=== PATIENT | female | born 1950 | race Caucasian/White ===

== ENCOUNTER → 2019-03-29 | Outpatient (CLI) | payer MEDICARE ==
--- NOTE | 2019-03-29 17:11 | RAD ---
Three-view thoracic spine series Clinical indications: Back pain. FINDINGS: No compression fracture or discitis or lytic process is seen. IMPRESSION: No compression fracture is seen. Electronically signed by: Alex Rasmussen MD (03/29/2019 5:07 PM) [id number]
== END | disposition home or self-care (01) ==
LOC: PMG 15:52
PROVIDERS: ATTEND Family Medicine
DX: M54.6 Pain in thoracic spine (principal)
CPT/HCPCS: 72072

== ENCOUNTER 2019-06-26 13:44 | Observation (INO) | payer MEDICARE, MEDICAID ==
[~2019-06-26] VITALS: Ht 165.1 cm; Wt 102.2 kg
[2019-06-26] MEDS ORDERED: IV NORMAL SALINE 1,000ML 1,000 ML IV SCH (14:09)
[2019-06-26 14:35] LABS: BASO % 1 % (0-3); EOS # 0.1 x10^3/uL (0.0-0.7); EOS % 3 % (0-3); HEMATOCRIT 40.9 % (36.0-47.0); HEMOGLOBIN 13.5 g/dL (12.0-15.5); LYMPH # 1.6 x10^3/uL (1.0-4.8); LYMPH % 30 % (24-48); MEAN CORPUSCULAR HEMOGLOBIN 29 pg (25-35); MEAN CORPUSCULAR HGB CONC 33 g/dL (31-37); MEAN CORPUSCULAR VOLUME 88 fL (79-100); MONO # 0.3 x10^3/uL (0.0-1.1); MONO % 5 % (0-9); NEUT # 3.3 x10^3uL (1.8-7.7); NEUT % 61 % (31-73); PLATELET COUNT 215 x10^3/uL (140-400); RED BLOOD COUNT 4.63 x10^6/uL (3.50-5.40); RED CELL DISTRIBUTION WIDTH 13.9 % (11.5-14.5); WHITE BLOOD COUNT 5.4 x10^3/uL (4.0-11.0)
--- NOTE | 2019-06-26 14:43 | PHYS DOC ---
Adult General Chief Complaint Chief Complaint: NEURO SYMPTOMS/DEFICITS HPI HPI Patient is a 68 year old female who presents with complaint of right-sided weakness. The patient states that she awoke yesterday morning with symptoms of right-sided facial droop and right upper extremity weakness. States that the symptoms have been persistent since onset. Noted that she felt weaker today and admits that she had a fall at home. She states that she was able to get herself up after this fall which prompted her to call her neighbor. She states her neighbor then called 911 and patient was thus brought to the emergency department by EMS for further evaluation. Has history of previous CVA in 1995 and factor V Leiden deficiency. Currently takes daily Plavix. Notes that her weakness is primarily in her right upper extremity and along the right side of her face. Does note slowed speech. Denies chest pain, shortness of breath, fever, or abdominal pain. Review of Systems Review of Systems Constitutional: Denies fever or chills [] Eyes: Denies change in visual acuity, redness, or eye pain [] HENT: Denies nasal congestion or sore throat [] Respiratory: Denies cough or shortness of breath [] Cardiovascular: Denies chest pain or edema [] GI: Denies abdominal pain, nausea, vomiting, bloody stools or diarrhea [] : Denies dysuria or hematuria [] Musculoskeletal: Denies back pain or joint pain [] Integument: Denies rash or skin lesions [] Neurologic: Right-sided facial droop, right upper extremity weakness and numbness [] All other systems were reviewed and found to be within normal limits, except as documented in this note. Current Medications Current Medications Current Medications Medications (Trade) Dose Ordered Sig/Valeriano Start Time Stop Time Status Last Admin Dose Admin Iohexol (Omnipaque 350 Mg/ml) 100 ml 1X ONCE 06/26/19 14:45 06/26/19 14:46 UNV Sodium Chloride 1,000 ml @ 1,000 mls/hr Q1H 06/26/19 14:09 06/26/19 15:08 Allergies Allergies Allergies Coded Allergies Type Severity Reaction Last Updated Verified gabapentin Allergy Unknown 06/26/19 Yes magnesium Allergy Unknown 06/26/19 Yes phenobarbital Allergy Unknown 06/26/19 Yes Physical Exam Physical Exam Constitutional: Well developed, well nourished, no acute distress, non-toxic appearance. [] HENT: Normocephalic, atraumatic, bilateral external ears normal, oropharynx moist, no oral exudates, nose normal. [] Eyes: PERRLA, EOMI, conjunctiva normal, no discharge. [] Neck: Normal range of motion, no tenderness, supple, no stridor. [] Cardiovascular:Heart rate regular rhythm, no murmur [] Lungs & Thorax: Bilateral breath sounds clear to auscultation [] Abdomen: Bowel sounds normal, soft, no tenderness, no masses, no pulsatile masses. [] Skin: Warm, dry, no erythema, no rash. [] Back: No tenderness, no CVA tenderness. [] Extremities: No tenderness, no cyanosis, no clubbing, ROM intact, no edema. [] Neurologic: Alert and oriented X 3, right-sided facial droop sparing forehead, right upper extremity motor weakness 4 out of 5, positive drift in right upper extremity, no ataxia. [] Current Patient Data Vital Signs Vital Signs Date Time Temp Pulse Resp B/P (MAP) Pulse Ox O2 Delivery O2 Flow Rate FiO2 06/26/19 14:48 80 13 179/94 (122) 93 Room Air Lab Results Laboratory Tests Test 06/26/19 14:08 Glucose (Fingerstick) 95 mg/dL (70-99) EKG EKG Interpreted by me: Heart rate 72, sinus rhythm, normal intervals, normal axis, no acute ST/T wave abnormalities present [] Radiology/Procedures Radiology/Procedures CT head code stroke read by radiologist: No acute findings [] Course & Med Decision Making Course & Med Decision Making Pertinent Labs and Imaging studies reviewed. (See chart for details) Patient's evaluation shows findings concerning for CVA. Patient's onset of symptoms took place greater than 24 hours prior to presentation in the emergency department. CT imaging of the head was completed which showed no acute findings. I contacted Dr. Dey, stroke neurologist at [facility], and spoke with her regarding the case out 0. She agreed that patient would not be a candidate for IV TPA or endovascular thrombolytics. She did recommend the patient undergo CT angiography of the head and neck to rule out arterial dissection. After results of CT angiography were received, I contacted Dr. Dey and communicated these results. She stated that the patient would not require transfer for MRI imaging as this could be done as an outpatient. She recommended that patient have an echocardiogram and ensure continued treatment with Plavix and aspirin. She stated that the patient could be cared for at [facility] given access to echocardiogram and inpatient neurology consult capabilities. I contacted Dr. Goodman who agreed to accept patient in hospital for further care. [] Dragon Disclaimer Dragon Disclaimer This electronic medical record was generated, in whole or in part, using a voice recognition dictation system. NIH Stroke Scale: NIH Stroke Scale Response (Comments) Value Level of Consciousness: 0 Alert/Responsive 0 LOC Questions: 0 Answers both correctly 0 LOC Commands: 0 Performs both tasks 0 Best Gaze: 0 Normal 0 Visual: 0 No visual loss 0 Facial Palsy: 2 Partial paralysis 2 Motor - Left Arm 0 No drift 0 Motor - Right Arm 1 Drifts but can hold 1 Motor - Left Leg 0 No drift 0 Motor: Right Leg 0 No drift 0 Limb Ataxia: 1 One limb 1 Sensory: 1 Mid to moderate loss 1 Best Language: 1 Mild to mod aphasia 1 Dysathria: 1 Mild to moderate 1 Extinction and Inattention: 0 Normal 0 Total 7 Departure Departure: Impression: Primary Impression: Acute CVA (cerebrovascular accident) Disposition: ADMITTED INPATIENT Admitting Physician: Ramirez Goodman Condition: STABLE Referrals: HUGH OSBORN MD (PCP) WILI LEUNG MD Jun 26, 2019 14:43
[2019-06-26 14:45] LABS: CALCIUM 8.8 mg/dL (8.5-10.1); POTASSIUM 4.2 mmol/L (3.5-5.1)
[2019-06-26] MEDS ORDERED: CONTRAST GIVEN MC PRN (14:45)
[2019-06-26] MEDS ORDERED: IOHEXOL 350 MG/ML 100 ML VIAL. IV ONE (14:45)
[2019-06-26 14:50] LABS: ALBUMIN 3.6 g/dL (3.4-5.0); ALBUMIN/GLOBULIN RATIO 1.2 (1.0-1.7); TOTAL BILIRUBIN 0.4 mg/dL (0.2-1.0); TOTAL PROTEIN 6.6 g/dL (6.4-8.2)
--- NOTE | 2019-06-26 15:10 | RAD ---
CT CODE STROKE HEAD WO History: Right-sided weakness. Right eye drooping Comparison: None. Technique: Noncontrast CT imaging was performed of the head. Exposure: One or more of the following individualized dose reduction techniques were utilized for this examination: 1. Automated exposure control 2. Adjustment of the mA and/or kV according to patient size 3. Use of iterative reconstruction technique. Findings: No intracranial hemorrhage. No mass effect. No hydrocephalus. Extra-axial spaces are unremarkable. Imaged orbits are unremarkable. Imaged paranasal sinuses and mastoid air cells are clear. No acute calvarial fracture. Impression: 1. No acute intracranial abnormality. FOR INTERNAL CODING PURPOSES Critical result: Findings discussed with WILI LEUNG at 06/26/2019 2:10 PM. RESULT CODE: (C) Electronically signed by: Murray Ortega DO (06/26/2019 2:12 PM) [id number]
--- NOTE | 2019-06-26 15:27 | RAD ---
EXAM: Chest, single view. HISTORY: Right-sided weakness. COMPARISON: None. FINDINGS: A frontal view of the chest is obtained. There is focal left suprahilar opacity. There is no consolidation, pleural effusion or pneumothorax. The heart is normal in size. IMPRESSION: Possible left suprahilar infiltrate or focal opacity due to overlying osseous and pulmonary vascular shadows. Follow-up can be performed to exclude infiltrate or a persistent lesion in this location. Electronically signed by: Bertha Bernal MD (06/26/2019 3:24 PM) [facility]
--- NOTE | 2019-06-26 15:54 | RAD ---
CTA of the head and neck with contrast 06/26/2019 Clinical history: Right-sided weakness since yesterday. Technique: After the intravenous administration of 75 cc of Omnipaque 300, contiguous, 0.625 mm axial sections were obtained through the upper chest, neck and head. Multiplanar 3-D MIP and volume rendered 3-D reconstructed images were obtained. One or more of the following individualized dose reduction techniques were utilized for this study: 1. Automated exposure control. 2. Adjustment of the mA and/or kV according to patient size. 3. Use of iterative reconstruction technique. Findings: Comparison is made to patient's CT scan of the head performed earlier today. Scattered atherosclerotic plaque formation is seen involving the thoracic aortic arch and its branches. The origin of the brachiocephalic and left common carotid and left subclavian arteries from the thoracic aortic arch are patent. The origin of the right common carotid artery and right vertebral artery are patent. The left vertebral artery appears to arise from the proximal left common carotid artery. This is normal variation. This origin is patent. The common carotid arteries are mildly tortuous bilaterally but patent. Mild atheromatous/atherosclerotic plaque formation seen involving both carotid bifurcations, right greater than left. No hemodynamically significant stenosis is seen. The internal carotid arteries within the neck are tortuous but patent. The left vertebral artery is slightly dominant Both vertebral arteries demonstrate normal antegrade flow. No area stenosis or occlusion is seen. Intracranially, scattered atherosclerotic plaque formation is seen involving the cavernous portions of both internal carotid arteries. No hemodynamically significant stenosis or area of occlusion is seen. The basilar artery is patent. The anterior, middle and posterior cerebral arteries and their branches are within normal limits. No area of stenosis or occlusion is seen. No intracranial aneurysm is noted. The major dural venous sinuses are patent. No area of abnormal contrast enhancement is seen. No acute soft tissue abnormality is seen involving the neck. Degenerative changes are seen involving the uncovertebral and facet joints throughout the cervical disc spaces. The patient is post anterior discectomy and fusion using an anterior plate, bone screws and bone graft material extending from C4 to C7. Impression: 1. Mild atheromatous/atherosclerotic plaque formation is seen involving both carotid bifurcations, right greater than left. No hemodynamically significant stenosis is seen. 2. No intracranial stenosis or area of occlusion is seen. Stenosis calculation for CTA are based on measurement of the distal internal carotid artery diameter in accordance with the NASCET methodology. Electronically signed by: Finesse Berger MD (06/26/2019 3:51 PM) [id number]
[2019-06-26] MEDS ORDERED: ACETAMINOPHEN 325 MG TABLET PO ONE ×2 (18:04→18:15)
--- NOTE | 2019-06-26 18:18 | EKG ---
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
[2019-06-26 20:37] VITALS: BP 158/87
[2019-06-26] MEDS ORDERED: CLOP75TA57 PO (21:06)
[2019-06-26] MEDS ORDERED: SERT100T PO (21:06)
[2019-06-26] MEDS ORDERED: ALBU2.5V8 IH (21:06)
[2019-06-26] MEDS ORDERED: PANT40TA3 PO (21:06)
[2019-06-26] MEDS ORDERED: LEVO25TA4 PO (21:06)
[2019-06-26] MEDS ORDERED: TRAM50TA PO (21:06)
[2019-06-26] MEDS ORDERED: QUET50TA5 PO (21:06)
[2019-06-26] MEDS ORDERED: LAMO150T3 PO (21:06)
[2019-06-26] MEDS ORDERED: ROPI0.25 PO (21:06)
[2019-06-26] MEDS ORDERED: traMADol 50 MG TABLET PO PRN ×2 (21:30→21:45)
[2019-06-26] MEDS ORDERED: ALBUTEROL SULFATE 2.5 MG/3 ML NEBU. IH PRN (21:30)
[2019-06-26] MEDS ORDERED: ASPI-630 PO (21:33)
[2019-06-26] MEDS ORDERED: rOPINIRole 0.5 MG TABLET. PO SCH (22:00)
[2019-06-26] MEDS ORDERED: lamoTRIgine 100 MG TABLET. PO SCH (22:00)
[2019-06-26] MEDS ORDERED: QUEtiapine 50 MG TABLET. PO SCH (22:00)
[2019-06-26] MEDS: ACETAMINOPHEN 325 MG TABLET PO PRN (22:48)
--- NOTE | 2019-06-26 23:48 | NUR ---
The patient, FROYLAN QUINTANA, 68 y/o, F admitted by MARIA FERNANDA LUBIN MD, was given written information regarding hospital policies, unit procedures and contact persons. Valuables were checked and noted. PT presented with increased weakness, falls x2 at home with no injury, and RT-sided facial droopiness. At time of assessment, PT with no noted asymmetry to mouth, asymmetrical eye droopiness. Speech was clear and coherent. PT with a headache at 5/10. PT voided on arrival to unit. PT able to walk unassisted to restroom. Gait steady. No assistive devices at home or now. PT belongings left in room. PT's son notified of admission. Orders received at start of admission from MD. 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 PT had a CVA at age 44. PT with factor V Leiden. PT states that when she is extremely tired, she will have RT-sided weakness that quickly resolved. PT lives alone.
[2019-06-27] MEDS: ACETAMINOPHEN 325 MG TABLET PO PRN ×2 (04:28→15:52)
[2019-06-27 05:16] VITALS: BP 169/91
[2019-06-27] MEDS ORDERED: LEVOTHYROXINE 25 MCG TABLET. PO SCH (06:00)
[2019-06-27 06:10] LABS: BASO # 0.1 x10^3/uL (0.0-0.2); BASO % 1 % (0-3); EOS # 0.2 x10^3/uL (0.0-0.7); EOS % 4 % (0-3); HEMATOCRIT 37.8 % (36.0-47.0); HEMOGLOBIN 12.4 g/dL (12.0-15.5); LYMPH # 1.7 x10^3/uL (1.0-4.8); LYMPH % 38 % (24-48); MEAN CORPUSCULAR HEMOGLOBIN 29 pg (25-35); MEAN CORPUSCULAR HGB CONC 33 g/dL (31-37); MEAN CORPUSCULAR VOLUME 87 fL (79-100); MONO # 0.3 x10^3/uL (0.0-1.1); MONO % 6 % (0-9); NEUT # 2.3 x10^3uL (1.8-7.7); NEUT % 52 % (31-73); PLATELET COUNT 188 x10^3/uL (140-400); RED BLOOD COUNT 4.34 x10^6/uL (3.50-5.40); RED CELL DISTRIBUTION WIDTH 13.2 % (11.5-14.5); WHITE BLOOD COUNT 4.5 x10^3/uL (4.0-11.0)
[2019-06-27 06:18] LABS: CALCIUM 8.3 mg/dL (8.5-10.1); CREATININE 0.9 mg/dL (0.6-1.0); GFR 62.1; POTASSIUM 3.6 mmol/L (3.5-5.1)
[2019-06-27] MEDS ORDERED: PANTOPRAZOLE 40 MG TABLET. PO SCH (07:30)
--- NOTE | 2019-06-27 07:45 | NUR ---
NURSING NOTE CONSULT CONSULT HABIB PAGED OUT, RETURN PHONE CALL, HE WILL BE HERE TO SEE PT. ARIA RN.
[2019-06-27] MEDS: ONDANSETRON PF 4 MG/2 ML VIAL. IVP PRN ×2 (08:33→12:17)
[2019-06-27] MEDS ORDERED: SERTRALINE 100 MG TABLET. PO SCH (09:00)
[2019-06-27] MEDS ORDERED: CLOPIDOGREL BISULFATE 75 MG TABLET PO SCH (09:00)
--- NOTE | 2019-06-27 10:19 | RAD ---
DOPPLER CAROTID BILAT History: CVA COMPARISON: CT June 26, 2019 Technique: Duplex sonography of the cervical portion of both carotid arteries was performed. Real-time grayscale, color flow Doppler, and Doppler spectral waveform analysis is performed. PQRS Compliance Statement - Stenosis calculations for CT, MR and conventional angiography are based upon measurement of the distal ICA diameter in accordance with the NASCET methodology. Stenosis calculations for carotid ultrasound studies are derived from validated velocity criteria which are known to correlate with the NASCET methodology. Findings: Right side: Peak systolic flow velocity of the CCA is 68 cm/sec. Peak systolic flow velocity of the ICA is 57 cm/sec. The ICA/CCA ratio is 0.8. Peak end diastolic flow velocity of the ICA is 21 cm/sec. The peak systolic velocity of the ECA is 119 cm/sec. Mild focal calcified plaque within the right carotid bifurcation. Left side: Peak systolic flow velocity of the CCA is 52 cm/sec. Peak systolic flow velocity of the ICA is 73 cm/sec. The ICA/CCA ratio is 1.4. Peak end diastolic flow velocity of the ICA is 29 cm/sec. Peak systolic flow velocity of the ECA is 88 cm/sec. Mild soft plaque within the left carotid bifurcation. Vertebral arteries: Bilateral vertebral arteries demonstrate antegrade flow. IMPRESSION: 1. No hemodynamically significant internal carotid artery stenosis. 2. Mild bilateral carotid bifurcation atheromatous plaque. Electronically signed by: Murray Ortega DO (06/27/2019 10:16 AM) [id number]
--- NOTE | 2019-06-27 10:20 | NUR ---
NURSING NOTE PT C/O NAUSEA THIS AM AFTER BREAKFAST. PRN ZOFRAN GIVEN. PT STATES SHE IS FEELING BETTER. DR NAJERA HERE TO JOSE MANUEL PT. JOSE KNAPP.
[2019-06-27 11:21] VITALS: BP 153/90
--- NOTE | 2019-06-27 11:30 | CONS ---
DATE OF CONSULTATION: REFERRING PHYSICIAN: Dr. Goodman. REASON FOR CONSULTATION: Rule out stroke versus TIA. HISTORY OF PRESENT ILLNESS: This is a 68-year-old right-handed female who was admitted through Emergency Room on 06/26/2019. The patient presented with chief complaints of right facial drooping and right upper extremity weakness, began one day prior to this admission. She woke up that morning with right facial drooping and weakness of the right upper extremity. Currently, she complains of intermittent global headaches. She denies nausea, vomiting, chest pain, shortness of breath or palpitation. The patient stated her speech has been slow. She did have a mild weakness of the lower extremity, but that resolved. EMS was activated and transferred the patient to Emergency Room for further evaluation. According to the patient, she had previous stroke in 1995, presented with right-sided weakness and facial droop. She did describe intermittent symptoms of right-sided weakness when she gets tired, mainly affecting the left face and upper extremity. Initial nonenhanced head CT scan revealed no evidence of acute intracranial process and CT angio of the neck and the brain revealed no significant carotid artery stenosis or cerebral artery stenosis. The patient has been on Plavix for a while because she had factor V Leiden deficiency. PAST MEDICAL HISTORY: Significant for stroke in 1995, presented with right-sided weakness, TIA, hypertension, hypothyroidism, deep venous thrombosis, GERD, uterine and cervical cancer, kidney stone, urinary tract infection, osteoarthritis, degenerative disk disease, depressions, skin cancer. PAST SURGICAL HISTORY: Positive for cholecystectomy, cervical spine fusion, posterior aspect and lumbosacral spine surgery as well. FAMILY HISTORY: Brother had myocardial infarction as well as her father and diabetes mellitus. SOCIAL HISTORY: The patient denies smoking, alcohol drinking or illicit drug use. CURRENT HOME MEDICATIONS: Sertraline 150 mg daily, Plavix 75 mg daily, pantoprazole 40 mg daily, lamotrigine 150 mg at bedtime, levothyroxine 25 mcg daily, ropinirole 0.5 mg at bedtime, Seroquel 50 mg at bedtime, tramadol 100 mg every 6 hours p.r.n. for pain, albuterol inhaler, Tylenol. ALLERGIES: GABAPENTIN, MAGNESIUM and PHENOBARBITAL. REVIEW OF SYSTEMS: A 10-point review of system was performed as mentioned above in the history of present illness. The patient also complains of intermittent neck pain radiating to the shoulder plate and lower back pain radiating into the lower extremities. She denies bowel or bladder dysfunction. PHYSICAL EXAMINATION: GENERAL: Obese female, not in acute distress. She weighs 102 kilos. VITAL SIGNS: Blood pressure 169/91, respiratory rate 18, pulse is 75 and regular, temperature 98.1, oxygen saturation 94% on room air. HEENT: Normocephalic, atraumatic, otherwise unremarkable. NECK: Supple. Negative for carotid bruit, lymphadenopathy or thyromegaly. LUNGS: Clear to A and P. CARDIOVASCULAR: Regular rate and rhythm, normal S1, S2. There is no S3, S4 or murmur. ABDOMEN: Soft. Bowel sounds positive. EXTREMITIES: Negative for cyanosis, clubbing or edema. NEUROLOGICAL EXAMINATION: MENTAL STATUS: The patient is alert and oriented x 3. Speech is fluent. There is no language dysfunction. Memory, judgment and abstracting thinking are normal. The patient denies hallucination or delusion. CRANIAL NERVES: Visual rodrigues are full. The pupils are reactive to light and accommodation. The extraocular movements are intact. There is no nystagmus. There is mild right facial asymmetry on the right side. Hearing is intact bilaterally. The palate is elevated symmetrically. Sternocleidomastoid muscles are powerful bilaterally. The patient shrugs her shoulders symmetrically, protrudes her tongue in the midline without fasciculation or atrophy. MOTOR EXAMINATION: No focal muscle bulk was seen. The tone is normal. The strength is 4/5 in the right upper extremity and right shape carver compared to the left one. The strength elsewhere was 5/5 throughout. SENSORY EXAMINATION: Revealed normal pinprick, light touch, vibratory and position senses. Deep tendon reflexes were symmetric and hypoactive with absent Achilles responses. GAIT: The stance is steady. The patient walks without assistance. DIAGNOSTIC DATA: Initial nonenhanced head CT scan revealed no evidence of acute intracranial process. CT angio of the neck revealed mild atherosclerotic plaque formation without significant carotid stenosis. No intracranial stenosis or occlusion. Chest x-ray revealed questionable suprahilar infiltrate or focal opacity. LABORATORY DATA: CBC revealed white blood cells of 4.5 thousand, hemoglobin 12.4, hematocrit 37.8, platelet count 188,000. Chemistry revealed sodium of 142, potassium 3.6, chloride 108, CO2 of 27, BUN 12, creatinine 0.9, glucose 87, calcium 8.3. PT is 9.6 and INR 0.9. IMPRESSION: Possible acute stroke, presented with persistent right facial weakness and right upper extremity paresis, sparing the lower extremities. The patient has multiple risk factors for stroke including factor V Leiden deficiency, age, hypertension, previous stroke or transient ischemic attacks. RECOMMENDATIONS: 1. Continue with current medications including Plavix. 2. We will add aspirin 81 mg p.o. daily. 3. Physical therapy evaluation. 4. Correct slowly the underlying hypertension and keep systolic blood pressure around 135-140m weight loss. M Isi NAJERA MD DR: IAN/sylvester JOB#: [id number] / [id number]
--- NOTE | 2019-06-27 12:54 | HP ---
ADMIT DATE: HISTORY OF PRESENT ILLNESS: The patient is a 68-year-old female patient who presented with a complaint of right sided weakness. She stated she woke up on Monday morning with symptoms of right sided facial droop and right upper extremity weakness. She stated that her symptoms have been persistent since onset, noted that she felt weaker on the day of admission and admits that she had a fall at home. She states that she was able to get herself up after this fall, which prompted her to call her neighbor. She states her neighbor had then called 911. The patient was brought to the Emergency Department by EMS for further evaluation. She has had a previous history of CVA in 1995 and she has factor V Leiden deficiency, currently takes daily Plavix, notes that her weakness is primarily in her right upper extremity along the right side of her face. She does note slow with speech, but denied any chest pain, shortness of breath, fever, or abdominal pain. She was extensively evaluated in the Emergency Room. She has had a CT scan of the head and CT angio of the head and neck. CT scan of the head was unremarkable and showed no acute intracranial abnormality. CT angio showed also mild atheromatous/atherosclerotic plaque formation is seen involving both carotid bifurcation, right greater than left. No hemodynamically significant stenosis seen. No intracranial stenosis or areas of occlusion is seen and the ER physician spoke with the neurologist at [facility] who did not recommend any TPA and she recommended that the patient is not a candidate for TPA or endovascular thrombolytics; however, she did recommend the patient to add aspirin to her Plavix and also arrange for an echocardiogram and carotid Doppler ultrasound and to admit the patient to the hospital and to start the process of physical and occupational therapy. PAST MEDICAL HISTORY: Significant for hypertension, nephrolithiasis, hypothyroidism, bronchial asthma. She used to have morbid obesity, obstructive sleep apnea and left middle cerebral artery territory infarct with right-sided hemiplegia. PAST SURGICAL HISTORY: Significant for Fanny-en-Y for morbid obesity. She has cervical spine fusion, lumbar spine fusion, appendectomy, cholecystectomy, hysterectomy. ALLERGIES: She is allergic to GABAPENTIN, MAGNESIUM, AND PHENOBARBITAL. MEDICATIONS: She is currently on following medications: She is on albuterol sulfate 8.5 g 2 puffs every 4-6 hours, Plavix 75 mg daily, aspirin 81 mg chewable tablet once a day, tramadol 150 mg to take one to two tablets every 6 hours, lamotrigine 150 mg at bedtime, sertraline 150 mg daily, quetiapine fumarate 50 mg at bedtime, ropinirole/Requip 0.5 mg at bedtime, proton pump inhibitor 40 mg once a day, levothyroxine sodium 25 mcg once a day. FAMILY HISTORY: She has 3 brothers, all younger. One brother at the age of 67 because of bladder cancer. The other brother has congestive heart failure and he is on waiting list for heart transplant. Her father at age of 74 because of CVA and mother at age of 81 because of pancreatic cancer. SOCIAL HISTORY: She is , lives alone. She does not smoke, drink alcohol or use any recreational drugs. 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 REVIEW OF SYSTEMS: As per history of present illness. PHYSICAL EXAMINATION: GENERAL: On arrival to the Emergency Room, she looked well and was clearly in no apparent respiratory distress. No pallor, jaundice, cyanosis or thyromegaly. No jugular venous distention. No limb edema. VITAL SIGNS: Her heart rate was 72, blood pressure was 194/93, temperature was 98.5, respiratory rate was 20, and oxygen saturation was 96%. HEAD, EYES, EARS, NOSE AND THROAT: Showed normocephalic, atraumatic. NECK: Supple. HEART: Showed normal first and second heart sounds with no gallop or murmur. CHEST: Clear to auscultation. No crepitation or rhonchi. ABDOMEN: Distended, soft, nontender. NEUROLOGIC: She was awake, alert, responding appropriately. She has mild right sided facial droop and she has also right sided weakness, which is more pronounced in her right upper extremity than her lower extremity. LABORATORY DATA: Her lab work on arrival showed a white cell count 5400, hemoglobin 13.5, hematocrit 40.9, MCV 88 and platelet count of 215,000. Her chemistry on admission showed a serum sodium 142, potassium 4.2, chloride 106, bicarbonate 27, anion gap of 9, BUN 14, creatinine 1, estimated GFR was 55 mL per minute. Her glucose was 93 and calcium was 8.8. Total bilirubin, AST, ALT were normal. Alkaline phosphatase slightly up at 134. Total protein was 6.6, albumin 3.9. Her prothrombin time, INR and aPTT are all normal. Her CT scan of the head showed that there is no intracranial hemorrhage, no mass effect or hydrocephalus. Extraaxial space is unremarkable. Imaged orbits are unremarkable. Imaged paranasal sinuses and mastoid air cells are clear, no acute calvarial fracture. Her chest x-ray showed possible left suprahilar infiltrate or focal opacity due to overlying osseous and pulmonary vascular shadows. Followup can be performed to exclude infiltrate or resistant lesion in this location. The CT angio of the head and neck showed that she has mild atheromatous/atherosclerotic plaque formation seen involving both carotid bifurcation, right greater than left. No hemodynamically significant stenosis seen. No intracranial stenosis or areas of occlusion is seen. ASSESSMENT AND PLAN: The patient was admitted with a plan to add aspirin 81 mg to her medication and arrange for bilateral carotid Doppler, fasting lipid profile as well as an echocardiogram and to consult physical and occupational therapy. MARIA FERNANDA LUBIN MD DR: NEHEMIAH/sylvester JOB#: [id number] / [id number]
[2019-06-27 14:25] VITALS: BP 120/67
--- NOTE | 2019-06-27 16:28 | NUR ---
NURSING NOTE SPOKE WITH DEEDEE, STATES HER ECHO WONT TRANSMIT BUT LOOKS OKAY. WILL LET DR LUBIN KNOW. JOSE KNAPP.
[2019-06-27] MEDS ORDERED: ONDA4TAB7 PO (17:09)
--- NOTE | 2019-06-27 17:37 | NUR ---
NURSING NOTE DISCHARGE PT DISCHARGED HOME VIA AMBULATION ACCOMPANIED BY SELF. PT GIVEN WRITTEN AND VERBAL DISCHARGE INSTRUCTIONS. PT GIVEN SCRIPT FOR ZOFRAN AND DAILY ASPIRIN. PT GIVEN STROKE EDUCATION AND PREVENTION INFORMATION. PT IS AWARE TO FOLLOW UP WITH DR NAJERA. NO COMPLICATIONS. JOSE KNAPP.
--- NOTE | 2019-06-28 07:59 | CARD ---
MR#: [id number] Date of Study: 06/27/2019 Ordering Physician: MARIA FERNANDA LUBIN, Referring Physician: MARIA FERNANDA LUBIN Tech: Flor Mendiola RDCS APPROVED REPORT EXAM: Two-dimensional and M-mode echocardiogram with Doppler and color Doppler. Other Information Quality : Good INDICATION CVA/TIA 2D DIMENSIONS Left Atrium(2D)2.6 (1.6-4.0cm)IVSd0.8 (0.7-1.1cm) Aortic Root(2D)2.9 (2.0-3.7cm)LVDd4.4 (3.9-5.9cm) PWd0.9 (0.7-1.1cm)LVDs3.1 (2.5-4.0cm) FS (%) 30.4 %SV51.7 ml LVEF(%)58.0 (>50%) Aortic Valve AoV Peak Paramjit.163.0cm/sAoV VTI34.1cm AO Peak GR.10.6mmHgAO Mean GR.6mmHg CHRISTEL (VTI)2.52kh1LT P 1/2 Nihx419cg Mitral Valve MV E Jxfyblgv58.9cm/sMV DECEL OELW177tx MV A Cmgequke32.4cm/sE/A Ratio0.8 Tricuspid Valve TR P. Limjshte604eq/sRAP KVICOXYI6rbQq TR Peak Gr.81haOsYISS16zhFw LEFT VENTRICLE The left ventricle is normal size. There is normal left ventricular wall thickness. The left ventricu lar systolic function is normal. The Ejection Fraction is 55-60%. There is normal LV segmental wall m otion. Transmitral Doppler flow pattern is Grade I-abnormal relaxation pattern. RIGHT VENTRICLE The right ventricle is normal size. The right ventricular systolic function is normal. ATRIA The left atrium size is normal. The right atrium size is normal. The interatrial septum is intact wit h no evidence for an atrial septal defect or patent foramen ovale as noted on 2-D or Doppler imaging. AORTIC VALVE The aortic valve is calcified but opens well. Doppler and Color Flow revealed mild to moderate aortic regurgitation. There is no significant aortic valvular stenosis. MITRAL VALVE The mitral valve is normal in structure and function. There is no evidence of mitral valve prolapse. There is no mitral valve stenosis. Doppler and Color-flow revealed trace mitral regurgitation. TRICUSPID VALVE The tricuspid valve is normal in structure and function. Doppler and Color Flow revealed trace tricus pid regurgitation. There is mild pulmonary hypertension. The PA pressure was estimated at 35 mmHg. Th ere is no tricuspid valve stenosis. PULMONIC VALVE The pulmonic valve is not well visualized. Doppler and Color Flow revealed trace pulmonic valvular re gurgitation. There is no pulmonic valvular stenosis. GREAT VESSELS The aortic root is normal in size. The ascending aorta is normal in size. The IVC is normal in size a nd collapses >50% with inspiration. PERICARDIAL EFFUSION There is no evidence of significant pericardial effusion. Critical Notification Critical Value: No <Conclusion> The left ventricular systolic function is normal. The Ejection Fraction is 55-60%. There is normal LV segmental wall motion. Transmitral Doppler flow pattern is Grade I-abnormal relaxation pattern. Mild to moderate aortic regurgitation. Trace mitral regurgitation. Trace tricuspid regurgitation. The PA pressure was estimated at 35 mmHg. There is no evidence of significant pericardial effusion. Signed by : Chucky Vincent, Electronically Approved : 06/28/2019 07:59:17
[2019-06-28] MEDS ORDERED: ASPIRIN CHEWABLE 81 MG TABLET. PO SCH (09:00)
== END 2019-06-27 17:30 | disposition home or self-care (01) ==
LOC: ER 13:44 → 1 SOUTH 16:29 → INTOOBSV 16:29
PROVIDERS: ADMIT Internal Medicine; ATTEND Internal Medicine
DX: I63.9 Cerebral infarction, unspecified (principal); I10 Essential (primary) hypertension; E03.9 Hypothyroidism, unspecified; J45.909 Unspecified asthma, uncomplicated; E66.01 Morbid (severe) obesity due to excess calories; G47.33 Obstructive sleep apnea (adult) (pediatric); G81.91 Hemiplegia, unspecified affecting right dominant side; D68.51 Activated protein C resistance; W19.XXXA Unspecified fall, initial encounter; Y92.009 Unspecified place in unspecified non-institutional (private) residence as the place of occurrence of the external cause; Z79.02 Long term (current) use of antithrombotics/antiplatelets; Z79.890 Hormone replacement therapy; Z79.899 Other long term (current) drug therapy; Z80.0 Family history of malignant neoplasm of digestive organs; Z80.52 Family history of malignant neoplasm of bladder; Z82.3 Family history of stroke; Z82.49 Family history of ischemic heart disease and other diseases of the circulatory system; Z83.3 Family history of diabetes mellitus; Z85.41 Personal history of malignant neoplasm of cervix uteri; Z85.828 Personal history of other malignant neoplasm of skin; Z86.73 Personal history of transient ischemic attack (TIA), and cerebral infarction without residual deficits; Z87.442 Personal history of urinary calculi; Z90.710 Acquired absence of both cervix and uterus; Z98.1 Arthrodesis status
CPT/HCPCS: 36415; 70450; 70496; 70498; 71045; 80048; 80053; 80061; 82947; 85025; 85610; 85730; 93005; 93306; 93880; 96374; 96376; 97116; 97162; 97166; 97530; 99285; G0378; J2405; Q9967; G0379; J7030

== ENCOUNTER 2020-03-30 16:30 | Emergency (ER) | payer MEDICARE, MEDICAID ==
[~2020-03-30] VITALS: Ht 162.6 cm; Wt 97.3 kg
[~2020-03-30 16:30] MED LIST: ALBU2.5V8 IH; ASPI-630 PO; CLOP75TA57 PO; LAMO150T3 PO; LEVO25TA4 PO; ONDA4TAB7 PO; PANT40TA3 PO; QUET50TA5 PO; ROPI0.25 PO; SERT100T PO; TRAM50TA PO
[2020-03-30 16:40] VITALS: BP 130/96
--- NOTE | 2020-03-30 16:50 | PHYS DOC ---
Past History Past Medical History: CVA, Hypothyroid, Kidney Stones (ELMA VELÁSQUEZ DO) Past Surgical History: Appendectomy, Hysterectomy (ELMA VELÁSQUEZ DO) Alcohol Use: None (ELMA VELÁSQUEZ DO) Adult General Chief Complaint Chief Complaint: HEADACHE HPI HPI Patient is a 69yo female presenting via POV for COVID symptoms. She is known COVID positive, is on day 7 of symptoms and was diagnosed 3 days ago with COVID- 19 infection after being tested at local health department. She lives at home alone and has been providing supportive care to herself. She has had classic symptoms such as malaise, nasal congestion, rhinorrhea, tension-like headaches, nausea with looser stools than usual. Denies fever, syncope, lightheadedness, dizziness, falls, nuchal rigidity, chest pain, shortness of breath, production cough, UTI-like symptoms or dec in urination (ELMA VELÁSQUEZ DO) Review of Systems Review of Systems Fourteen body systems of review of systems have been reviewed. See HPI for pertinent positives and negative responses, other stewart all other systems are negative, non-pertinent or non-contributory (ELMA VELÁSQUEZ DO) Allergies Allergies Allergies Coded Allergies Type Severity Reaction Last Updated Verified gabapentin Allergy Unknown 06/26/19 Yes magnesium Allergy Unknown 06/26/19 Yes phenobarbital Allergy Unknown 06/26/19 Yes (ELMA VELÁSQUEZ DO) Physical Exam Physical Exam Constitutional: Well developed, well nourished, no acute distress, non-toxic appearance. [] HENT: Normocephalic, atraumatic, bilateral external ears normal, oropharynx moist with postnasal drip present, no oral exudates, nose normal. [] Eyes: PERRLA, EOMI, conjunctiva normal, no discharge. [] Neck: Normal range of motion, holosystolic murmur present 3/6. [] Cardiovascular:Heart rate regular rhythm, no murmur [] Lungs & Thorax: Bilateral breath sounds clear to auscultation [] Abdomen: Bowel sounds normal, soft, no tenderness, no masses, no pulsatile masses. [] Skin: Warm, dry, no erythema, no rash. [] Back: No tenderness, no CVA tenderness. [] Extremities: No tenderness, no cyanosis, no clubbing, ROM intact, no edema. [] Neurologic: Alert and oriented X 3, normal motor function, normal sensory function, no focal deficits noted. [] Psychologic: Anxious affect and mood (DIDIERELMA ) Current Patient Data Vital Signs Vital Signs Date Time Temp Pulse Resp B/P (MAP) Pulse Ox O2 Delivery O2 Flow Rate FiO2 03/30/20 16:40 98.9 86 24 130/96 (107) 96 Room Air Lab Results Laboratory Tests Test 03/30/20 17:20 White Blood Count 3.0 x10^3/uL Red Blood Count 4.76 x10^6/uL Hemoglobin 13.7 g/dL Hematocrit 40.6 % Mean Corpuscular Volume 85 fL Mean Corpuscular Hemoglobin 29 pg Mean Corpuscular Hemoglobin Concent 34 g/dL Red Cell Distribution Width 12.8 % Platelet Count 175 x10^3/uL Neutrophils (%) (Auto) 52 % Lymphocytes (%) (Auto) 36 % Monocytes (%) (Auto) 10 % Eosinophils (%) (Auto) 1 % Basophils (%) (Auto) 1 % Neutrophils # (Auto) 1.5 x10^3uL Lymphocytes # (Auto) 1.1 x10^3/uL Monocytes # (Auto) 0.3 x10^3/uL Eosinophils # (Auto) 0.0 x10^3/uL Basophils # (Auto) 0.0 x10^3/uL Sodium Level 138 mmol/L Potassium Level 4.3 mmol/L Chloride Level 104 mmol/L Carbon Dioxide Level 28 mmol/L Anion Gap 6 Blood Urea Nitrogen 12 mg/dL Creatinine 0.9 mg/dL Estimated GFR (Cockcroft-Gault) 61.9 BUN/Creatinine Ratio 13 Glucose Level 94 mg/dL Calcium Level 8.2 mg/dL Total Bilirubin 0.2 mg/dL Aspartate Amino Transf (AST/SGOT) 18 U/L Alanine Aminotransferase (ALT/SGPT) 17 U/L Alkaline Phosphatase 105 U/L Troponin I Quantitative < 0.017 ng/mL Total Protein 6.3 g/dL Albumin 3.4 g/dL Albumin/Globulin Ratio 1.2 Current Medications Medications (Trade) Dose Ordered Sig/Valeriano Route PRN Reason Start Time Stop Time Status Last Admin Dose Admin Sodium Chloride 1,000 ml @ 1,000 mls/hr Q1H IV 03/30/20 17:00 03/30/20 17:59 DC 03/30/20 17:25 Ondansetron HCl (Zofran) 4 mg 1X ONCE IVP 03/30/20 17:30 03/30/20 17:31 DC 03/30/20 17:27 Acetaminophen (Tylenol) 650 mg 1X ONCE PO 03/30/20 17:30 03/30/20 17:31 DC 03/30/20 17:29 Ondansetron HCl (Zofran) 4 mg STK-MED ONCE .ROUTE 03/30/20 17:26 03/30/20 17:26 DC (ELMA VELÁSQUEZ DO) EKG EKG EKG ordered and interpreted by myself at 1714 hrs. as sinus rhythm at 78 bpm, unremarkable intervals, left axis deviation, no acute ischemic findings, no STEMI (ELMA VELÁSQUEZ DO) Radiology/Procedures Radiology/Procedures [] (ELMA VELÁSQUEZ DO) Heart Score HEART Score for Chest Pain: HEART Score for Chest Pain Response (Comments) Value History Slighlty/Non-Suspicious 0 ECG Normal 0 Age > 65 2 Risk Factors >3 Risk Factors or Hx CAD 2 Troponin < Normal Limit 0 Total 4 Risk Factors: Risk Factors: DM, Current or recent (<one month) smoker, HTN, HLP, family history of CAD, obesity. Risk Scores: Risk Factors: DM, Current or recent (<one month) smoker, HTN, HLP, family history of CAD, obesity. (ELMA VELÁSQUEZ DO) Course & Med Decision Making Course & Med Decision Making Patient initially triaged with HPI and physical exam performed. Diagnostic w orkup and intervention started prior to end of my shift. Signout was given to Dr. Granger, please defer to his documentation regarding the rest of patient's ER visit (ELMA VELÁSQUEZ DO) Course & Med Decision Making Pt. Liter NS and Zofran, Tylenol. improved symptoms. Plan D/C home Rx Zofran. Continue tylenol and ibuprofen for discomfort . Self Isolate. Follow up with primary See Dr. Velásquez note for details. . Impression: 1. Viral Syndrome 2. Nausea and Vomiting 3. Dehydrated 4.COVID + (CHUCK GRANGER MD) Dragon Disclaimer Dragon Disclaimer This electronic medical record was generated, in whole or in part, using a voice recognition dictation system. (ELMA VELÁSQUEZ DO) Departure Departure: Impression: Primary Impression: COVID-19 Additional Impression: Nausea & vomiting Disposition: 01 DC HOME SELF CARE/HOMELESS Condition: IMPROVED Referrals: HUGH OSBORN MD (PCP) Scripts Ondansetron Hcl (ZOFRAN) 4 Mg Tablet 8 MG PO QIDPRN PRN for NAUSEA/VOMITING, #30 TAB Prov: CHUCK GRANGER MD 03/30/20 Hydrocodone/Ibuprofen (HYDROCODONE-IBUPROFEN 7.5-200 ) 1 Each Tablet 1 TAB PO PRN Q6HRS PRN for PAIN, #30 TAB 0 Refills Prov: CHUCK GRANGER MD 03/30/20 Dragon Disclaimer This chart was dictated in whole or in part using Voice Recognition software in a busy, high-work load, and often noisy Emergency Department environment. It may contain unintended and wholly unrecognized errors or omissions. (CHUCK GRANGER MD) Dragon Disclaimer This chart was dictated in whole or in part using Voice Recognition software in a busy, high-work load, and often noisy Emergency Department environment. It may contain unintended and wholly unrecognized errors or omissions. (ELMA VELÁSQUEZ DO) Problem Qualifiers ELMA VELÁSQUEZ DO Mar 30, 2020 16:50 CHUCK GRANGER MD Mar 30, 2020 18:49
[2020-03-30] MEDS ORDERED: IV NORMAL SALINE 1,000ML 1,000 ML IV SCH (17:00)
[2020-03-30] MEDS ORDERED: ONDANSETRON PF 4 MG/2 ML VIAL. ONE (17:26)
[2020-03-30] MEDS ORDERED: ACETAMINOPHEN 325 MG TABLET PO ONE (17:30)
[2020-03-30] MEDS ORDERED: ONDANSETRON PF 4 MG/2 ML VIAL. IVP ONE (17:30)
[2020-03-30 17:38] LABS: BASO % 1 % (0-3); EOS % 1 % (0-3); HEMATOCRIT 40.6 % (36.0-47.0); HEMOGLOBIN 13.7 g/dL (12.0-15.5); LYMPH # 1.1 x10^3/uL (1.0-4.8); LYMPH % 36 % (24-48); MEAN CORPUSCULAR HEMOGLOBIN 29 pg (25-35); MEAN CORPUSCULAR HGB CONC 34 g/dL (31-37); MEAN CORPUSCULAR VOLUME 85 fL (79-100); MONO # 0.3 x10^3/uL (0.0-1.1); MONO % 10 % (0-9); NEUT # 1.5 x10^3uL (1.8-7.7); NEUT % 52 % (31-73); PLATELET COUNT 175 x10^3/uL (140-400); RED BLOOD COUNT 4.76 x10^6/uL (3.50-5.40); RED CELL DISTRIBUTION WIDTH 12.8 % (11.5-14.5)
[2020-03-30 17:50] LABS: CALCIUM 8.2 mg/dL (8.5-10.1); CREATININE 0.9 mg/dL (0.6-1.0); GFR 61.9; POTASSIUM 4.3 mmol/L (3.5-5.1)
--- NOTE | 2020-03-30 17:52 | RAD ---
EXAM: XR CHEST 1V 03/30/2020 4:54 PM CLINICAL INDICATION: Covid positive, increased shortness of breath COMPARISON: Chest radiograph 06/26/2019 TECHNIQUE: AP upright view of the chest FINDINGS: The heart and mediastinum are normal. Lungs are well-expanded and clear. No consolidatio n, pleural effusion, or pneumothorax. Pulmonary vascularity is normal. There is lower cervical fusio n hardware. IMPRESSION: No acute cardiopulmonary abnormality. Electronically signed by: Jessie Bueno MD (03/30/2020 5:49 PM) [id number]
[2020-03-30 17:56] LABS: ALBUMIN 3.4 g/dL (3.4-5.0); ALBUMIN/GLOBULIN RATIO 1.2 (1.0-1.7); TOTAL BILIRUBIN 0.2 mg/dL (0.2-1.0); TOTAL PROTEIN 6.3 g/dL (6.4-8.2)
--- NOTE | 2020-03-30 18:03 | EKG ---
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
[2020-03-30] MEDS ORDERED: HYDR-1179 PO (18:53)
[2020-03-30] MEDS ORDERED: ONDA4TAB7 PO (18:53)
== END 2020-03-30 19:07 | disposition home or self-care (01) ==
LOC: ER 16:30
DX: U07.1 COVID-19 (principal); R11.2 Nausea with vomiting, unspecified; R09.81 Nasal congestion; J34.89 Other specified disorders of nose and nasal sinuses; R51.9 Headache, unspecified; E86.0 Dehydration; E03.9 Hypothyroidism, unspecified; Z87.442 Personal history of urinary calculi; Z86.73 Personal history of transient ischemic attack (TIA), and cerebral infarction without residual deficits; Z90.89 Acquired absence of other organs; Z90.710 Acquired absence of both cervix and uterus; Z88.8 Allergy status to other drugs, medicaments and biological substances
CPT/HCPCS: 36415; 71045; 80053; 84484; 85025; 93005; 96361; 96374; 99285; J2405; J7030

== ENCOUNTER 2020-04-02 09:53 | Inpatient (IN) | payer MEDICARE, MEDICAID ==
[~2020-04-02] VITALS: Ht 162.6 cm; Wt 97.7 kg
[~2020-04-02 09:53] MED LIST changes: +HYDR-1179 PO
--- NOTE | 2020-04-02 09:59 | PHYS DOC ---
Past History Past Medical History: Arthritis, Asthma, Bipolar, Cancer, CVA, Depression, Hypertension, Other Additional Past Medical Histor: FACTOR 5 Past Surgical History: Cholecystectomy, Hysterectomy, Other Additional Past Surgical Histo: GASTRECTOMY Alcohol Use: None Drug Use: None General Adult EDM: Chief Complaint: NEAR SYCOPE HPI: HPI: 69-year-old female presenting the emergency department today with nausea dry heaves and headache over the past week. She was diagnosed with COVID-19 last week. She had been given IV fluids and nausea medication which helped in the emergency department and discharged home. Today she was feeling worse felt lightheaded. She is having trouble keeping food down. Onset 1 week. Location generalized. Duration constant. No alleviating factors. She describes her headache as not sudden in onset and taking more than an hour to reach maximal intensity. She denies any nuchal rigidity or any new rashes. She has had fevers. She endorses cough and is also short of breath. EMS brings the patient in for evaluation. Review of systems negative for chest pain. She does endorse a mild epigastric abdominal pain which is nonradiating without alleviating factors. She denies any rashes. All other review of systems negative. ED course: 69-year-old female presenting with nausea generalized fatigue and malaise with lightheadedness cough congestion after being diagnosed with Covid. On arrival the patient is afebrile with a normal heart rate. Blood pressure within normal limits. Satting well on room air. She is well-appearing with a normal neurologic exam. Blood work shows leukopenia which is likely secondary to COVID-19. Chemistry panel unremarkable. Troponin within normal limits. Chest x-ray shows no acute infiltrates. CT chest abdomen pelvis shows multifocal p neumonia likely secondary to COVID-19 without pulmonary embolism. Abdomen pelvis CT shows no specific cause for nausea and vomiting. We will admit the patient for further treatment and care. I spoke to Dr. Goodman who accepts patient for admission. Current Medications: Current Meds: Current Medications Medications (Trade) Dose Ordered Sig/Valeriano Start Time Stop Time Status Last Admin Dose Admin Sodium Chloride 500 ml @ 0 mls/hr 1X ONCE 04/02/20 10:00 04/02/20 10:01 UNV Allergies: Allergies: Allergies Coded Allergies Type Severity Reaction Last Updated Verified gabapentin Allergy Unknown 06/26/19 Yes magnesium Allergy Unknown 06/26/19 Yes phenobarbital Allergy Unknown 06/26/19 Yes Physical Exam: PE: Constitutional: Well developed, well nourished, no acute distress, non-toxic appearance. [] HENT: Normocephalic, atraumatic, bilateral external ears normal, oropharynx moist, no oral exudates, nose normal. [] Eyes: PERRLA, EOMI, conjunctiva normal, no discharge. [] Neck: Normal range of motion, no tenderness, supple, no stridor. [] Cardiovascular:Heart rate regular rhythm, no murmur [] Lungs & Thorax: Bilateral breath sounds clear to auscultation [] Abdomen: Bowel sounds normal, soft, no tenderness, no masses, no pulsatile masses. [] Skin: Warm, dry, no erythema, no rash. [] Back: No tenderness, no CVA tenderness. [] Extremities: No tenderness, no cyanosis, no clubbing, ROM intact, no edema. [] Neurologic: Alert and oriented X 3, normal motor function, normal sensory function, no focal deficits noted. [] Psychologic: Affect normal, judgement normal, mood normal. [] EKG: EKG: [] Radiology/Procedures: Radiology/Procedures: [] Heart Score: Risk Factors: Risk Factors: DM, Current or recent (<one month) smoker, HTN, HLP, family history of CAD, obesity. Risk Scores: Score 0 - 3: 2.5% MACE over next 6 weeks - Discharge Home Score 4 - 6: 20.3% MACE over next 6 weeks - Admit for Clinical Observation Score 7 - 10: 72.7% MACE over next 6 weeks - Early Invasive Strategies Course & Med Decision Making: Course & Med Decision Making Pertinent Labs and Imaging studies reviewed. (See chart for details) [] Dragon Disclaimer: Dragon Disclaimer: This electronic medical record was generated, in whole or in part, using a voice recognition dictation system. Departure Departure: Impression: Primary Impression: Generalized weakness Additional Impressions: Pneumonia due to COVID-19 virus Nausea and vomiting Abdominal pain Fever Disposition: 09 ADMITTED INPT THIS HOSP Admitting Physician: Ramirez Goodman Condition: STABLE Referrals: HUGH OSBORN MD (PCP) KAMLA AUGUSTIN MD Apr 02, 2020 09:59
[2020-04-02] MEDS ORDERED: IV NORMAL SALINE 500ML 500 ML IV ONE ×2 (10:00→10:30)
--- NOTE | 2020-04-02 10:29 | RAD ---
AP chest. HISTORY: Lightheaded, Covid-19 positive AP view was taken of the chest. Patient's taken a poor inspiration. Heart is normal in size. There is no pleural effusion. There are no acute infiltrates. IMPRESSION: 1. Poor inspiration. 2. No acute infiltrates. Electronically signed by: Eitan Palafox MD (04/02/2020 10:26 AM) [id number]
[2020-04-02] MEDS ORDERED: METOCLOPRAMIDE HCL 10 MG/2 ML VIAL. IVP ONE (10:30)
[2020-04-02] MEDS ORDERED: IOHEXOL 300 MG/ML 75 ML VIAL. IV ONE (10:45)
[2020-04-02] MEDS ORDERED: CONTRAST GIVEN. MC PRN (10:45)
[2020-04-02] MEDS ORDERED: IV NORMAL SALINE 1,000ML 1,000 ML IV ONE (10:45)
[2020-04-02 11:10] LABS: BASO % 1 % (0-3); EOS % 1 % (0-3); HEMOGLOBIN 13.2 g/dL (12.0-15.5); LYMPH # 0.8 x10^3/uL (1.0-4.8); LYMPH % 21 % (24-48); MEAN CORPUSCULAR HEMOGLOBIN 28 pg (25-35); MEAN CORPUSCULAR HGB CONC 33 g/dL (31-37); MEAN CORPUSCULAR VOLUME 86 fL (79-100); MONO # 0.3 x10^3/uL (0.0-1.1); MONO % 9 % (0-9); NEUT # 2.6 x10^3uL (1.8-7.7); NEUT % 69 % (31-73); PLATELET COUNT 177 x10^3/uL (140-400); RED BLOOD COUNT 4.65 x10^6/uL (3.50-5.40); RED CELL DISTRIBUTION WIDTH 12.9 % (11.5-14.5); WHITE BLOOD COUNT 3.7 x10^3/uL (4.0-11.0)
[2020-04-02] MEDS ORDERED: IOHEXOL 350 MG/ML 100 ML VIAL. IV ONE (11:15)
[2020-04-02 11:18] LABS: CALCIUM 8.7 mg/dL (8.5-10.1); GFR 54.8; POTASSIUM 4.2 mmol/L (3.5-5.1)
[2020-04-02] MEDS ORDERED: PROCHLORPERAZINE 10 MG/2 ML VIAL. IV ONE (11:45)
--- NOTE | 2020-04-02 11:47 | EKG ---
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
--- NOTE | 2020-04-02 12:53 | RAD ---
EXAM: CT Pulmonary Angiogram INDICATION: Reason: abd pain and vomiting, short of breath, / Spl. Instructions: / History: TECHNIQUE: Multi-detector row images were acquired from the thoracic inlet through the upper abdomen with the use of IV contrast. Sagittal and coronal images were acquired from the transaxial data. PA P images of the pulmonary arteries were obtained. All CT scans performed at this facility utilize dos e optimization techniques as appropriate to the exam, including the following: Automated exposure con trol and adjustment of the mA and/or KV according to patient size (this includes techniques or standa rdized protocols for targeted exams where dose is indication/reason for exam). IV CONTRAST: Administered COMPARISON: None FINDINGS: PULMONARY ARTERIES: No pulmonary emboli are identified. CARDIOVASCULAR: Dense multivessel coronary calcifications. Aorta is normal caliber. MEDIASTINUM & PRINCESS: No adenopathy or masses. LUNGS: Patchy groundglass opacities in the right greater than left lungs bilaterally are present helen g with relatively low lung volumes. PLEURAL SPACE: No pleural effusions or pneumothorax. OSSEOUS & SOFT TISSUE: ACDF surgical changes in the lower cervical spine. No acute or aggressive osse ous lesions. ABDOMEN: Included upper abdomen shows surgical changes from previous gastric bypass and cholecystecto my. IMPRESSION: Multifocal pneumonia. No pulmonary emboli. EXAM: CT Abdomen and Pelvis with IV contrast INDICATION: Reason: abd pain and vomiting, short of breath, / Spl. Instructions: / History: TECHNIQUE: Multi-detector row CT images were acquired from the lung bases through the abdomen and pel vis with the use of IV contrast. Sagittal and coronal images were acquired from the transaxial data. All CT scans performed at this facility utilize dose optimization techniques as appropriate to the ex am, including the following: Automated exposure control and adjustment of the mA and/or KV according to patient size (this includes techniques or standardized protocols for targeted exams where dose is indication/reason for exam). IV CONTRAST: Administered ORAL CONTRAST: none COMPARISON: None FINDINGS: LOWER CHEST: Unremarkable LIVER: Unremarkable BILIARY SYSTEM: Gallbladder is unremarkable. Bile ducts are not dilated. PANCREAS: Unremarkable SPLEEN: Unremarkable ADRENALS: Unremarkable KIDNEYS & URETERS: Unremarkable BLADDER: Mild diffuse bladder wall thickening is nonspecific. REPRODUCTIVE ORGANS: Hysterectomy. GASTROINTESTINAL: The stomach, small bowel, and colon are unremarkable. The appendix is normal. MESENTERY/PERITONEUM/RETROPERITONEUM: Unremarkable VASCULAR: Scattered arterial calcifications. LYMPH NODES: No adenopathy OSSEOUS & SOFT TISSUES: Interbody graft at L4-L5 with nelson and pedicle construct screw fixation is ev ident. Postsurgical changes in the paraspinal soft tissues dorsally. IMPRESSION: No specific cause for abdominal pain and vomiting is identified with postsurgical changes as describe d in the body of the report, including findings of a previous gastric bypass with no evidence of sameera l obstruction, perforation or acute inflammation shown. Electronically signed by: Keyona Qureshi MD (04/02/2020 12:50 PM) [id number]
[2020-04-02] MEDS ORDERED: DEXAMETHASONE SOD PHOS 10 MG/ML VIAL. IV ONE (13:15)
[2020-04-02] MEDS ORDERED: AZITHROMYCIN 250 MG TABLET. PO ONE (13:15)
[2020-04-02] MEDS ORDERED: IV NORMAL SALINE 50ML 50 ML ONE (14:03)
[2020-04-02] MEDS ORDERED: cefTRIAXone SODIUM 1 GM VIAL ONE (14:03)
[2020-04-02 14:52] VITALS: BP 139/82
--- NOTE | 2020-04-02 15:02 | NUR ---
PATIENT IS 69 Y O FEMALE, ARRIVED VIA EMS TO ROOM 124. PATIENT IS A/O X4. CALM AND COOPERATIVE WITH ASSESSMENT. PATIENT WAS DIAGNOSED WITH COVID ABOUT ONE WEEK AGO. PT C/O FATIGUE, N/V, PATIENT STATED SHE HAS NOT BEEN EATING WELL FOR THE PAST 4 DAYS, CAN ONLY TOLERATE LIQUID DIET. PATIENT STATED SHE FEELS WEAK, HAD TEMP FOR A FEW DAYS. PATIENT CURRENTLY IS AFEBRILE, VS OBTAINED AND ARE STABLE . PATIENT WAS ORIENTED TO THE ROOM AND HOSPITAL POLICIES, PATIENT BELONGINGS INVENTORIED. AIRBORNE AND CONTACT PRECAUTIONS INITIATED.
--- NOTE | 2020-04-02 15:40 | RAD ---
Examination: Ultrasound imaging guidance for IV access. INDICATION: Imaging guidance with ultrasound was requested by emergency room staff to assist with shameka cement of an IV catheter. COMPARISON: None. FINDINGS: The left upper extremity cephalic vein was identified and successfully punctured with placement of an IV catheter at the elbow. Hamilton Sandoval RN, inserted a 20-gauge catheter with this assistance. IMPRESSION: Ultrasound imaging guidance provided for catheterization of patient's left cephalic vein. Electronically signed by: Keyona Qureshi MD (04/02/2020 3:38 PM) [id number]
[2020-04-02] MEDS ORDERED: FURO-69 PO (15:43)
[2020-04-02] MEDS ORDERED: TRAZ-120 PO (15:43)
[2020-04-02] MEDS ORDERED: POTA10TA5 PO (15:43)
[2020-04-02] MEDS ORDERED: ALBUTEROL SULFATE 2.5 MG/3 ML NEBU. IH PRN (17:00)
[2020-04-02] MEDS ORDERED: ALBUTEROL SULFATE 8GM INHALER. INH PRN (17:15)
[2020-04-02] MEDS ORDERED: ONDANSETRON PF 4 MG/2 ML VIAL. IVP PRN (17:15)
[2020-04-02] MEDS: ENOXAPARIN 40 MG/0.4 ML SYRINGE. SQ SCH (17:21)
[2020-04-02] MEDS: IV DEXTROSE 5 %-0.45 % NACL 1,000 ML IV SCH (17:21)
[2020-04-02] MEDS: traMADol 50 MG TABLET PO PRN (17:21)
--- NOTE | 2020-04-02 17:49 | HP ---
ADMIT DATE: 04/02/2020 HISTORY OF PRESENT ILLNESS: The patient is a 69-year-old female patient, who apparently started complaining of sore throat, cough, headache, fever for initial 4 days up to 102.8. She has also has productive cough with clear sputum. ___ nausea and vomiting, but no diarrhea. She feel dizzy, lightheaded, and she was tested for coronavirus at [facility] on 03/23/2020 and on 03/27/2020 she was told she was positive. She continued to have these symptoms; however, she was brought today to the Emergency Room with generalized fatigue and malaise with lightheadedness, cough, congestion after being diagnosed with COVID. On arrival to the Emergency Room today, she was afebrile with normal heart. Her vital signs were stable. Her oxygen saturation was normal with normal neurologic exam. Her lab works showed leukopenia likely due to COVID-19; however, her chemistry is well within normal range and her D-dimer was 0.84. She did have a chest x-ray, which showed the patient has poor inspiration, but no acute infiltrate and she did have CT scan of the chest, abdomen and pelvis with contrast, which basically showed that there was no pulmonary emboli identified. She has dense multivessel coronary calcification. There are patchy ground glass opacities in the right greater than left lungs bilaterally are present along with relatively low lung volumes. No pleural effusion or pneumothorax. Does have ACDF surgical changes in the lower cervical spine, but no acute or aggressive osseous lesion and the abdomen showed no specific cause of abdominal pain and vomiting identified with postsurgical changes as described in the body of the report. The patient was admitted with generalized weakness, COVID-19 pneumonia and dehydration. The patient was treated with IV fluid, IV antibiotic in the form of Zithromax and ceftriaxone as well as dexamethasone. PAST MEDICAL HISTORY: Significant for bronchial asthma. 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 PAST SURGICAL HISTORY: Significant for back and neck fixation, total abdominal hysterectomy, bilateral salpingo-oophorectomy, melanoma resection from her back twice, appendectomy, cholecystectomy, bilateral cataract extraction. ALLERGIES: She is allergic to GABAPENTIN, MAGNESIUM and PHENOBARBITAL. MEDICATIONS: She is currently on following medications: She is on albuterol sulfate 2 puffs every 4-6 hours, Plavix 75 mg daily. She is on aspirin 81 mg once a day, hydrocodone/ibuprofen one tablet every 6 hours, tramadol 1-2 tablets every 6 hours, lamotrigine 150 mg at bedtime, sertraline 150 mg daily, trazodone 50 mg at bedtime, quetiapine fumarate 50 mg at bedtime, Requip 0.5 mg at bedtime, potassium chloride 10 mEq once a day, furosemide 20 mg once a day, ondansetron 4 mg every 6 hours. She is on Protonix 40 mg once a day, levothyroxine sodium 25 mcg once a day. FAMILY HISTORY: She has 3 brothers, all younger; one has bladder cancer, one has type 2 diabetes and one has congestive heart failure and transplant list. Her father at age of 74 because of peripheral vascular disease and multiple strokes. Mother at the age of 83 because of the pancreatic cancer. SOCIAL HISTORY: She is , has 1 son. She has never smoked, does not drink alcohol. 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 Apparently, her father, son and grandson are all positive for Factor V Leiden. REVIEW OF SYSTEMS: As per history of present illness. PHYSICAL EXAMINATION: GENERAL: On arrival to the Emergency Room, she looked well and was clearly in no apparent respiratory distress. No pallor, jaundice, cyanosis or thyromegaly. No jugular venous distention. No lower limb edema. VITAL SIGNS: Her heart rate was 73, blood pressure was 119/87, temperature was 97.8, respiratory rate was 16, and oxygen saturation was 95%. HEAD, EYES, EARS, NOSE AND THROAT: Showed normocephalic, atraumatic. NECK: Supple. HEART: Showed normal first and second heart sounds. No gallop, rub or murmur. CHEST: Clear to auscultation. No crepitation or rhonchi. ABDOMEN: Distended, soft, nontender. No guarding or rigidity. No organomegaly. All hernial orifice intact. Bowel sounds normal. NEUROLOGIC: She was awake, alert, responding appropriately. All cranial nerves are intact. EXTREMITIES: She moves extremities without difficulty. She ambulates without assistance or assistive devices. LABORATORY DATA: Showed a white cell count of 3700, hemoglobin 13, hematocrit 40, MCV 86 and platelet count of 177,000 with a manual differential showed 69% polymorphs, 21% lymphocytes and 9% monocytes. Her D-dimer was 0.84. Her chemistry showed a serum sodium 138, potassium 4.2, chloride 103, bicarbonate 25, anion gap of 10, BUN 11, creatinine 1, estimated GFR was 54 mL per minute, her glucose 103, calcium was 8.7, magnesium 2. IMAGING: Chest x-ray showed the patient's heart size is normal. There is no pleural effusion. There are no acute infiltrate; however, the CT scan of the chest, abdomen and pelvis with contrast showed no pulmonary emboli identified. There is dense multivessel coronary calcification, aorta is normal in caliber. There is no adenopathy or masses in the mediastinum and juan. Lungs, patchy ground glass opacities in the right greater than left lung, bilaterally are present along with relatively low lung volumes. There is no pleural effusion or pneumothorax. There is ACDF surgical changes in the lower cervical spine, no acute or aggressive osseous lesions. CT scan of the abdomen and pelvis with IV contrast showed that the liver, biliary tree, pancreas, spleen, adrenals and kidneys and ureters are unremarkable. The bladder showed mild diffuse bladder wall thickening that is nonspecific. Reproductive organs showed that she has hysterectomy. Her stomach, small bowel and colon are unremarkable. Appendix is normal. The mesentery peritoneum and retroperitoneum are unremarkable. Vascular showed scattered arterial calcifications. No lymphadenopathy is seen and there is interbody graft at L4-L5 with nelson and ___ construct screw fixation is evident. Postsurgical changes in the paraspinal soft tissue dorsally. ASSESSMENT: The patient was admitted with COVID-19 pneumonia. She is known to have bronchial asthma, had had a history of cerebrovascular accident in 1995 with right side weakness that has resolved. She has degenerative disk disease, history of DVT and Factor V Leiden. PLAN: My plan is to start her on IV fluid and IV antiemetic. I will continue with IV Rocephin and Zithromax, and continue with all her medications except perhaps the furosemide and hydrocodone/ibuprofen. We will monitor her closely and adjust her medication as needed. MARIA FERNANDA LUBIN MD DR: NEHEMIAH/sylvester JOB#: [id number] / [id number]
[2020-04-02 19:41] VITALS: BP 133/83
[2020-04-02] MEDS: lamoTRIgine 100 MG TABLET. PO SCH (20:36)
[2020-04-02] MEDS: rOPINIRole 0.5 MG TABLET. PO SCH (20:36)
[2020-04-02] MEDS: QUEtiapine 50 MG TABLET. PO SCH (20:36)
[2020-04-02] MEDS: traZODone 50 MG TABLET. PO SCH (20:36)
[2020-04-03] VITALS: BP 155/85
[2020-04-03 05:44] VITALS: BP 141/73
[2020-04-03] MEDS: LEVOTHYROXINE 25 MCG TABLET. PO SCH ×2 (06:00→06:14)
[2020-04-03] MEDS: IV DEXTROSE 5 %-0.45 % NACL 1,000 ML IV SCH ×2 (06:35→20:19)
[2020-04-03] MEDS: CLOPIDOGREL BISULFATE 75 MG TABLET PO SCH (08:16)
[2020-04-03] MEDS: PANTOPRAZOLE 40 MG TABLET. PO SCH (08:16)
[2020-04-03] MEDS: AZITHROMYCIN 250 MG TABLET. PO SCH (08:16)
[2020-04-03] MEDS: DEXAMETHASONE SOD PHOS 10 MG/ML VIAL. IV SCH (08:16)
[2020-04-03] MEDS: SERTRALINE 100 MG TABLET. PO SCH (08:16)
[2020-04-03] MEDS: ASPIRIN CHEWABLE 81 MG TABLET. PO SCH (08:16)
[2020-04-03 08:43] LABS: HEMATOCRIT 39.1 % (36.0-47.0); RED BLOOD COUNT 4.58 x10^6/uL (3.50-5.40); RED CELL DISTRIBUTION WIDTH 12.6 % (11.5-14.5); WHITE BLOOD COUNT 3.9 x10^3/uL (4.0-11.0)
[2020-04-03 08:59] LABS: ALBUMIN/GLOBULIN RATIO 0.9 (1.0-1.7); CALCIUM 7.9 mg/dL (8.5-10.1); GFR 54.8; TOTAL BILIRUBIN 0.2 mg/dL (0.2-1.0); TOTAL PROTEIN 6.3 g/dL (6.4-8.2)
[2020-04-03 11:00] VITALS: BP 126/81
--- NOTE | 2020-04-03 13:23 | PN ---
DATE: 04/03/2020 SUBJECTIVE: The patient is a 69-year-old female patient, who is COVID-19 positive and was admitted with a complaint of nausea, vomiting, generalized fatigue and malaise as well as lightheadedness. She was afebrile and when on arrival to the Emergency Room, her vital signs were stable. Her oxygen saturation was normal with normal neurological. Her lab work showed she has mild leukopenia. Her D-dimer was slightly elevated. Chest x-ray showed the patient has poor inspiration and CT scan of the chest, abdomen and pelvis showed there was no pulmonary emboli; however, she has patchy ground glass opacities in the right greater than left lung bilaterally, no pleural effusion or pneumothorax. We did start her on IV antibiotic in the form of ceftriaxone and Zithromax as well as dexamethasone and Lovenox for DVT prophylaxis. Started her on IV fluid. On questioning her this morning, she continued to have complaint of nausea, but no vomiting. She is tolerating her clear liquid diet. She continued to be afebrile. PHYSICAL EXAMINATION: GENERAL: When I examined her this morning, she looked well and was clearly in no apparent distress. No pallor, jaundice, cyanosis or thyromegaly. No jugular venous distention or limb edema. VITAL SIGNS: Her heart rate was 65, blood pressure 141/73, temperature was 97.4, respiratory rate was 18 and oxygen saturation was 93%. HEAD, EYES, EARS, NOSE, AND THROAT: Showed normocephalic, atraumatic. NECK: Supple. HEART: Normal first and second heart sounds. No gallop, rub or murmur. CHEST: Showed central trachea, equal bilateral chest expansion, air entry, vesicular breath sounds. I really could not appreciate any crepitation or rhonchi. ABDOMEN: Distended, soft, nontender. NEUROLOGIC: She is grossly intact. Her intake and output were incompletely recorded. LABORATORY DATA: Her lab work this morning showed a white cell count of 3900, hemoglobin 13, hematocrit 39, MCV 85 and platelet count of 172,000. Her chemistry showed a serum sodium 139, potassium of 4, chloride 105, bicarbonate 29, anion gap of 5, BUN 10, creatinine 1, estimated GFR was 55 mL per minute. Her glucose 116, calcium was 7.9, magnesium 2. Total bilirubin, AST, ALT, alkaline phosphatase were normal. Total protein 6.3, albumin was 3. ASSESSMENT: 1. COVID-19 pneumonia. 2. Bronchial asthma. 3. She has factor V Leiden, history of deep venous thrombosis. 4. Degenerative disk disease. 5. She has left middle cerebral artery territory infarct with right sided hemiparesis that has mostly resolved. PLAN: To continue with IV fluid, IV antibiotic. Continue with Rocephin and Zithromax. Continue with dexamethasone. We will follow her closely and will advance her diet as tolerated. MARIA FERNANDA LUBIN MD DR: NEHEMIAH/sylvester JOB#: [id number] / [id number]
[2020-04-03] MEDS: ENOXAPARIN 40 MG/0.4 ML SYRINGE. SQ SCH (17:46)
[2020-04-03 18:23] VITALS: BP 135/85
[2020-04-03] MEDS: LACTOBACILLUS RHAMNOSUS GG 1 CAPSULE. PO SCH (20:19)
[2020-04-03] MEDS: lamoTRIgine 100 MG TABLET. PO SCH (20:19)
[2020-04-03] MEDS: traZODone 50 MG TABLET. PO SCH (20:19)
[2020-04-03] MEDS: rOPINIRole 0.5 MG TABLET. PO SCH (20:19)
[2020-04-03] MEDS: QUEtiapine 50 MG TABLET. PO SCH ×2 (20:19→21:00)
[2020-04-03 23:15] VITALS: BP 145/77
[2020-04-04] MEDS: traMADol 50 MG TABLET PO PRN (02:52)
[2020-04-04] MEDS: LEVOTHYROXINE 25 MCG TABLET. PO SCH (06:00)
[2020-04-04 06:07] VITALS: BP 140/77
[2020-04-04] MEDS: SERTRALINE 100 MG TABLET. PO SCH (08:22)
[2020-04-04] MEDS: CLOPIDOGREL BISULFATE 75 MG TABLET PO SCH (08:22)
[2020-04-04] MEDS: LACTOBACILLUS RHAMNOSUS GG 1 CAPSULE. PO SCH ×2 (08:22→21:34)
[2020-04-04] MEDS: PANTOPRAZOLE 40 MG TABLET. PO SCH (08:23)
[2020-04-04] MEDS: AZITHROMYCIN 250 MG TABLET. PO SCH (08:23)
[2020-04-04] MEDS: ASPIRIN CHEWABLE 81 MG TABLET. PO SCH (08:23)
[2020-04-04] MEDS: DEXAMETHASONE SOD PHOS 10 MG/ML VIAL. IV SCH (08:23)
[2020-04-04] MEDS: IV DEXTROSE 5 %-0.45 % NACL 1,000 ML IV SCH (08:24)
--- NOTE | 2020-04-04 09:57 | PN ---
DATE: 04/04/2020 SUBJECTIVE: The patient is resting, slightly propped up in bed, in no apparent distress. On questioning her, she stated that she is feeling generally much better, stronger, has had no more nausea or vomiting. Denied any dizziness or lightheadedness. PHYSICAL EXAMINATION: GENERAL: When I examined her this morning, she looked well and was clearly in no apparent respiratory distress. No pallor, jaundice, cyanosis or thyromegaly. No jugular venous distention or limb edema. VITAL SIGNS: Her heart rate was 65, blood pressure was 140/77, temperature was 98.4, respiratory rate was 16, and oxygen saturation was 96% on room air. HEENT: Normocephalic, atraumatic. NECK: Supple. HEART: Normal first and second heart sounds. No gallop or murmur. CHEST: Clear to auscultation. No crepitation or rhonchi. ABDOMEN: Distended, soft, nontender. No guarding or rigidity. No organomegaly. All hernial orifice intact. Bowel sounds normal. NEUROLOGIC: She was grossly intact. Her intake and output were incompletely recorded. LABORATORY DATA: As of yesterday showed a white cell count of 3900, hemoglobin 13, hematocrit 39, MCV 85 and platelet count of 172,000. Her chemistry showed a serum sodium 139, potassium 4, chloride 105, bicarbonate 29, anion gap of 5, BUN 10, creatinine 1, estimated GFR was 55 mL per minute. Her glucose 118, calcium was 7.9. Total bilirubin, AST, ALT, alkaline phosphatase were normal. Total protein 6.3, albumin 3. ASSESSMENT: 1. COVID-19 pneumonia. 2. Bronchial asthma. 3. She has factor V Leiden with history of deep vein thrombosis. 4. Degenerative disk disease. 5. She has left middle cerebral artery territory infarct with right-sided hemiparesis that has mostly resolved. PLAN: To continue with IV antibiotic. Continue with IV fluid, continue with dexamethasone. I will repeat all her lab works tomorrow and if she remains stable, she can be discharged home to continue treatment as an outpatient. MARIA FERNANDA LUBIN MD DR: NEHEMIAH/sylvester JOB#: [id number] / [id number]
[2020-04-04] MEDS ORDERED: ARIP5TAB13 PO (10:34)
[2020-04-04 11:00] VITALS: BP 138/88
[2020-04-04] MEDS ORDERED: CALCIUM CARBONATE 500 MG TAB.CHEW PO PRN (12:15)
[2020-04-04] MEDS: ARIPiprazole 5 MG TABLET PO SCH (12:16)
[2020-04-04 15:30] VITALS: BP 152/75
[2020-04-04] MEDS: ENOXAPARIN 40 MG/0.4 ML SYRINGE. SQ SCH (17:26)
[2020-04-04 19:37] VITALS: BP 151/81
[2020-04-04] MEDS: traZODone 50 MG TABLET. PO SCH (21:34)
[2020-04-04] MEDS: rOPINIRole 0.5 MG TABLET. PO SCH (21:34)
[2020-04-04] MEDS: lamoTRIgine 100 MG TABLET. PO SCH (21:35)
[2020-04-04 23:04] VITALS: BP 140/64
[2020-04-05] MEDS: IV DEXTROSE 5 %-0.45 % NACL 1,000 ML IV SCH (01:18)
[2020-04-05 05:56] VITALS: BP 153/78
[2020-04-05 07:29] LABS: HEMOGLOBIN 12.3 g/dL (12.0-15.5); RED BLOOD COUNT 4.38 x10^6/uL (3.50-5.40); RED CELL DISTRIBUTION WIDTH 12.4 % (11.5-14.5); WHITE BLOOD COUNT 4.1 x10^3/uL (4.0-11.0)
[2020-04-05 07:41] LABS: ALBUMIN 2.8 g/dL (3.4-5.0); ALBUMIN/GLOBULIN RATIO 0.8 (1.0-1.7); CALCIUM 8.1 mg/dL (8.5-10.1); CREATININE 0.9 mg/dL (0.6-1.0); GFR 61.9; POTASSIUM 3.8 mmol/L (3.5-5.1); TOTAL BILIRUBIN 0.2 mg/dL (0.2-1.0); TOTAL PROTEIN 6.1 g/dL (6.4-8.2)
[2020-04-05] MEDS: CLOPIDOGREL BISULFATE 75 MG TABLET PO SCH (08:17)
[2020-04-05] MEDS: AZITHROMYCIN 250 MG TABLET. PO SCH (08:17)
[2020-04-05] MEDS: ARIPiprazole 5 MG TABLET PO SCH (08:17)
[2020-04-05] MEDS: ASPIRIN CHEWABLE 81 MG TABLET. PO SCH (08:17)
[2020-04-05] MEDS: PANTOPRAZOLE 40 MG TABLET. PO SCH (08:17)
[2020-04-05] MEDS: LACTOBACILLUS RHAMNOSUS GG 1 CAPSULE. PO SCH (08:17)
[2020-04-05] MEDS: DEXAMETHASONE SOD PHOS 10 MG/ML VIAL. IV SCH (08:18)
[2020-04-05] MEDS ORDERED: ACETAMINOPHEN 325 MG TABLET PO PRN (10:30)
[2020-04-05 11:37] VITALS: BP 137/78
[2020-04-05] MEDS ORDERED: AZIT250T PO (14:06)
[2020-04-05] MEDS ORDERED: CEFD300C PO (14:06)
--- NOTE | 2020-04-05 14:30 | DS ---
DATE OF DISCHARGE: 04/05/2020 HOSPITAL COURSE: The patient is sitting comfortably in her chair, in no apparent respiratory distress. She is awake and alert. Denied any complaint. Her oxygen saturation is 97% on room air. PHYSICAL EXAMINATION: GENERAL: When I examined her, she looked well and was clearly in no apparent respiratory distress. No pallor, jaundice, cyanosis, or thyromegaly. No jugular venous distension. No limb edema. VITAL SIGNS: Her heart rate was 61, blood pressure was 137/78, temperature was 98.9, respiratory rate was 20, and oxygen saturation was 94%. HEAD, EYES, EARS, NOSE AND THROAT: Showed she is normocephalic and atraumatic. NECK: Supple. HEART: Normal first and second sounds. No gallop, rub, or murmur. CHEST: Clear to auscultation. No crepitation or rhonchi. ABDOMEN: Distended, soft, and nontender. NEUROLOGIC: She was awake, alert, responding appropriately. All cranial nerves are intact. She moves extremities without difficulty. She ambulates without assistance or assistive devices. Her intake was 2040, no output was recorded. LABORATORY DATA: This morning showed a white cell count 4100, hemoglobin 12.3, hematocrit 37, MCV 84, and platelet count of 195,000. Serum sodium 140, potassium 3.8, chloride 105, bicarbonate 29, anion gap of 6, BUN 12, creatinine was 0.9, estimated GFR was 62 mL per minute. Her glucose was 93, calcium was 8.1. Total bilirubin, AST, ALT, and alkaline phosphatase were normal. Total protein 6.1, albumin was 2.8. Her D-dimer was 0.84. DISCHARGE MEDICATIONS: She was discharged home to continue on azithromycin 250 mg once a day for 3 more days, cefdinir 300 mg twice a day for 7 more days, dexamethasone 4 mg once a day for 3 days and then 2 mg once a day for 3 days. She should continue on all her home medications including albuterol sulfate 2 puffs every 4-6 hours, aripiprazole for Abilify 5 mg daily, aspirin 81 mg once a day, Plavix 75 mg once a day, furosemide, Lasix 20 mg once a day as needed, hydrocodone/ibuprofen 7.5/200 one tablet every 6 hours, lamotrigine 150 mg once a day, ondansetron for Zofran 4 mg every 6 hours, Protonix 40 mg once a day, potassium chloride 10 mEq daily, Requip 0.5 mg at bedtime, tramadol 50 mg, take one to two tablets every 6 hours, and trazodone 50 mg at bedtime for insomnia. FINAL DISCHARGE DIAGNOSES: 1. COVID-19 pneumonia, resolved. 2. Bronchial asthma, clinically quiescent. 3. Factor V Leiden with history of deep vein thrombosis. 4. Degenerative disk disease. 5. Left middle cerebral artery territory infarct with right-sided hemiparesis that has mostly resolved. MARIA FERNANDA LUBIN MD DR: NEHEMIAH/sylvester JOB#: [id number] / [id number]
== END 2020-04-05 15:08 | disposition home or self-care (01) | DRG 177 ==
LOC: ER 09:53 → 1 SOUTH 13:13
PROVIDERS: ADMIT Internal Medicine; ATTEND Internal Medicine
PROC: 05HF33Z Insertion of Infusion Device into Left Cephalic Vein, Percutaneous Approach (ICD-10-PCS; principal; 2020-04-02)
PROC: B54NZZA Ultrasonography of Left Upper Extremity Veins, Guidance (ICD-10-PCS; 2020-04-02)
DX: U07.1 COVID-19 (principal); J12.82 Pneumonia due to coronavirus disease 2019; D68.51 Activated protein C resistance; D72.819 Decreased white blood cell count, unspecified; E86.0 Dehydration; I10 Essential (primary) hypertension; I25.10 Atherosclerotic heart disease of native coronary artery without angina pectoris; M19.90 Unspecified osteoarthritis, unspecified site; F31.9 Bipolar disorder, unspecified; J45.909 Unspecified asthma, uncomplicated; Z80.0 Family history of malignant neoplasm of digestive organs; Z80.52 Family history of malignant neoplasm of bladder; Z82.49 Family history of ischemic heart disease and other diseases of the circulatory system; Z83.3 Family history of diabetes mellitus; Z85.820 Personal history of malignant melanoma of skin; Z86.718 Personal history of other venous thrombosis and embolism; Z90.710 Acquired absence of both cervix and uterus; Z98.41 Cataract extraction status, right eye; Z98.42 Cataract extraction status, left eye; Z86.73 Personal history of transient ischemic attack (TIA), and cerebral infarction without residual deficits; Z88.8 Allergy status to other drugs, medicaments and biological substances
CPT/HCPCS: 36415; 36556; 71045; 71275; 74177; 80048; 80053; 83690; 83735; 84484; 85025; 85027; 85379; 93005; 96361; 96365; 96375; J0696; J0780; J1100; J1650; J2405; J2765; 99285-25; J7030

== ENCOUNTER 2020-05-17 09:47 | Emergency (ER) | payer MEDICARE, MEDICAID ==
[~2020-05-17] VITALS: Ht 162.6 cm; Wt 99.0 kg
[~2020-05-17 09:47] MED LIST changes: +ARIP5TAB13 PO; +AZIT250T PO; +CEFD300C PO; +FURO-69 PO; +POTA10TA5 PO; +TRAZ-120 PO
--- NOTE | 2020-05-17 10:48 | PHYS DOC ---
Past History Past Medical History: Arthritis, Asthma, Bipolar, Cancer, CVA, Depression, DVT, Hypertension, Other Additional Past Medical Histor: FACTOR 5 Past Surgical History: Cholecystectomy, Hysterectomy, Other Additional Past Surgical Histo: GASTRECTOMY, melanoma X 2 Alcohol Use: Rarely Drug Use: None Adult General Chief Complaint Chief Complaint: DIZZY/LIGHT HEADED HPI HPI Patient is a 69-year-old female who presents to the emergency room complaining of weakness and dizziness for the last week. Patient states that her symptoms started on Monday. She saw her primary care doctor for them on . They thought that it was due to residual Covid symptoms as patient had Covid in March. She states that she has noticed since her weakness is started at that her blood pressure has been elevated. She used to be on blood pressure medicine many years ago but has been off of them for quite some time. She states it is very abnormal for her to have high blood pressure. Her blood pressure at home was 190/100. She states her dizziness is when she stands up. If she sits down and rests it goes away. She has had a mild headache since onset of symptoms. She also has some left calf tightness. She states she has had blood clots in her leg before but is unsure if this feels similar. She states it feels like a stretching type pain and she does not remember what her blood clots felt like previously. She does take Plavix but is not on any other blood thinner. She denies any shortness of breath or chest pain. She has not had any syncopal epis odes. Review of Systems Review of Systems Complete ROS is negative unless otherwise documented in HPI Allergies Allergies Allergies Coded Allergies Type Severity Reaction Last Updated Verified gabapentin Allergy Unknown 05/17/20 Yes magnesium Allergy Unknown 05/17/20 Yes phenobarbital Allergy Unknown 05/17/20 Yes Physical Exam Physical Exam General: Awake, alert, NAD. Well Nourished, well hydrated. Cooperative HEENT: Atraumatic, EOMI, PERRL, airway patent, moist oral mucosa Neck: Supple, trachea midline Respiratory: CTA bilaterally, normal effort, no wheezing/crackles CV: RRR, no murmur, cap refill <2 GI: Soft, nondistended, nontender, no masses MSK: No obvious deformities Skin: Warm, dry, intact Neuro: A&O x3, speech NL, 5/5 strength in BUE/BLE distally and proximally, CN 2- 12 intact, cerebellar testing normal Psych: Normal affect, normal mood, not suicidal or homicidal Current Patient Data Vital Signs Vital Signs Date Time Temp Pulse Resp B/P (MAP) Pulse Ox O2 Delivery O2 Flow Rate FiO2 05/17/20 09:50 97.9 72 16 159/111 (127) 99 Room Air EKG EKG [] Radiology/Procedures Radiology/Procedures [] Heart Score Risk Factors: Risk Factors: DM, Current or recent (<one month) smoker, HTN, HLP, family history of CAD, obesity. Risk Scores: Risk Factors: DM, Current or recent (<one month) smoker, HTN, HLP, family history of CAD, obesity. Course & Med Decision Making Course & Med Decision Making Pertinent Labs and Imaging studies reviewed. (See chart for details) Patient is a 69-year-old female with a history of recent coronavirus who presents to the emergency room complaining of generalized weakness and lightheadedness when standing. History and exam are significant for increased blood pressure. Patient does not have any neurologic changes. Given age and history differential for generalized weakness includes dehydration, electrolyte abnormalities, anemia, infection, arrhythmia, medication side effect. At this time CBC, BMP, EKG, UA, troponin, chest x-ray were ordered to evaluate for causes of weakness. Patient's D-dimer is 0.65 which is below her age-adjusted D-dimer. Patient does not need a ultrasound of her leg at this time. Patient was given fluids for mild dehydration. She was also given meclizine. Patient is able to ambulate without difficulty. Work-up is otherwise unremarkable. Patient's test results and vitals while in the ED were fully reviewed and discussed with the patient. Patient is stable and at this time does not need admission to the hospital. We have discussed strict return precautions and the importance of following up with their Primary Care Physician. Patient stated understanding and was given an opportunity to ask any questions. Patient is in agreement with plan. Dragon Disclaimer Dragon Disclaimer This electronic medical record was generated, in whole or in part, using a voice recognition dictation system. Departure Departure: Impression: Primary Impression: Dizziness Additional Impression: Dehydration Disposition: 01 DC HOME SELF CARE/HOMELESS Condition: STABLE Referrals: HUGH OSBORN MD (PCP) Patient Instructions: Dehydration, Adult, Dizziness Problem Qualifiers DUNBAR,KAROLINA MD May 17, 2020 10:48
[2020-05-17 11:02] LABS: BASO % 0 % (0-3); EOS # 0.1 x10^3/uL (0.0-0.7); EOS % 1 % (0-3); HEMATOCRIT 38.4 % (36.0-47.0); HEMOGLOBIN 12.6 g/dL (12.0-15.5); LYMPH # 2.3 x10^3/uL (1.0-4.8); LYMPH % 30 % (24-48); MEAN CORPUSCULAR HEMOGLOBIN 28 pg (25-35); MEAN CORPUSCULAR HGB CONC 33 g/dL (31-37); MEAN CORPUSCULAR VOLUME 87 fL (79-100); MONO # 0.6 x10^3/uL (0.0-1.1); MONO % 7 % (0-9); NEUT # 4.8 x10^3uL (1.8-7.7); NEUT % 61 % (31-73); PLATELET COUNT 237 x10^3/uL (140-400); RED BLOOD COUNT 4.43 x10^6/uL (3.50-5.40); RED CELL DISTRIBUTION WIDTH 13.5 % (11.5-14.5); WHITE BLOOD COUNT 7.8 x10^3/uL (4.0-11.0)
[2020-05-17 11:08] LABS: CALCIUM 8.6 mg/dL (8.5-10.1); CREATININE 0.8 mg/dL (0.6-1.0); GFR 70.9; POTASSIUM 3.9 mmol/L (3.5-5.1)
[2020-05-17 11:21] LABS: ALBUMIN 3.2 g/dL (3.4-5.0); ALBUMIN/GLOBULIN RATIO 0.9 (1.0-1.7); MAGNESIUM 2.1 mg/dL (1.8-2.4); TOTAL BILIRUBIN 0.3 mg/dL (0.2-1.0); TOTAL PROTEIN 6.6 g/dL (6.4-8.2)
[2020-05-17] MEDS ORDERED: IV NORMAL SALINE 1,000ML 1,000 ML IV ONE (12:15)
--- NOTE | 2020-05-17 12:27 | RAD ---
EXAM: XR CHEST 1V INDICATION: Reason: dizzy / Spl. Instructions: / History: . TECHNIQUE: Single view COMPARISON: CT pulmonary angiogram of 04/02/2020 and chest x-ray of 04/02/2020 FINDINGS: The heart size is normal. The great vessels appear unremarkable. There is no hilar or mediastinal mass. Lungs show mild engorgement of the central pulmonary vessels. There is no pleural effusion or pneumothorax. There are no significant osseous abnormalities. IMPRESSION: Mild engorgement of the central pulmonary vessels. Otherwise no acute findings. Electronically signed by: Keyona Qureshi MD (05/17/2020 12:25 PM) [facility] [place]
--- NOTE | 2020-05-17 12:33 | EKG ---
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
[2020-05-17] MEDS ORDERED: MECLIZINE 12.5 MG TABLET. PO ONE (13:15)
[2020-05-17 13:29] LABS: BILIRUBIN,URINE NEG (NEG); CLARITY,URINE CLEAR; COLOR,URINE YELLOW; GLUCOSE,URINE NEG (NEG); NITRITE,URINE NEG (NEG); UROBILINOGEN,URINE 0.2 mg/dL (0.2 mg/dL)
[2020-05-17 13:35] LABS: BACTERIA,URINE 0 /HPF (0-FEW); RBC,URINE OCC /HPF (0-2); SQUAMOUS EPITHELIAL CELL,UR FEW /LPF
[2020-05-17 14:50] VITALS: BP 167/94
== END 2020-05-17 15:07 ==
LOC: ER 09:47
DX: E86.0 Dehydration (principal); R42 Dizziness and giddiness; R51.9 Headache, unspecified; M19.90 Unspecified osteoarthritis, unspecified site; J45.909 Unspecified asthma, uncomplicated; F31.9 Bipolar disorder, unspecified; I10 Essential (primary) hypertension; Z86.73 Personal history of transient ischemic attack (TIA), and cerebral infarction without residual deficits; Z88.8 Allergy status to other drugs, medicaments and biological substances
CPT/HCPCS: 36415; 71045; 80053; 81001; 83735; 83880; 84484; 85025; 85379; 87086; 93005; 96360; 99285; J7030

== ENCOUNTER → 2020-08-27 | Outpatient (CLI) | payer MEDICARE, MEDICAID ==
--- NOTE | 2020-08-27 14:37 | RAD ---
EXAM: DUAL ENERGY X-RAY ABSORPTIOMETRY (DEXA). HISTORY: Postmenopausal screening. FINDINGS: The lowest measured T-score is -4.4 in the right forearm, based on a bone mineral density o f 0.397 g/cm^2. Refer to the worksheets for full detail. No comparison examinations are available. IMPRESSION: 1. Osteoporosis. Bone mineral density yields a T-score of -2.5 or less. Fracture risk is high. 2. FRAX report: Not calculated. METHODOLOGY: Dual energy x-ray absorptiometry was performed to measure bone mineral density. The foll owing analysis is based on the 2019 Official Positions of the International Society for Clinical Dens itometry: Measurements of the hips and the average of L1-L4 are preferred. When the spine and/or hip cannot be feasibly measured or interpreted, or in the setting of hyperparathyroidism, distal radial bone minera l density may be measured. The lumbar spine T-score is based on the average bone mineral density of L1-L4. In the setting of art ifact or anatomic abnormality, some lumbar levels may be excluded, and the remaining levels used for calculation. A single lumbar level is not used for diagnosis, and if only a single level is available for assessment, another anatomic site will be used to assign a diagnosis. The hip T-score is based on the bone mineral density measurement of the femoral neck or total proxima l femur of either side, whichever is lowest. Bilateral mean values are not used for diagnosis. The forearm T-score is derived from 33% of the distal radius of the nondominant forearm. Electronically signed by: Bertha Bernal MD (08/27/2020 2:35 PM) [id number]
--- NOTE | 2020-09-08 15:48 | RAD ---
EXAM: BILATERAL DIGITAL SCREENING MAMMOGRAPHY. HISTORY: Routine mammographic screening. TECHNIQUE: Bilateral full field digital images were obtained in CC and MLO projections. Computer-aide d detection was applied. COMPARISON: None available. This is interpreted as a baseline study. COMPOSITION: B. There are scattered areas of fibroglandular density. FINDINGS: There are no suspicious masses, microcalcifications or architectural distortion. The parenc hymal pattern is stable. Scattered and coarse calcifications are benign. BI-RADS CATEGORY 2: Benign. RECOMMENDATION: 1. Routine screening mammography in one year. If mammography demonstrates dense breast tissue (heterogenously dense or extremely dense, category C or D), which could hide abnormalities, and if other risk factors for breast cancer have been identifi ed, supplemental screening tests that may be suggested by the ordering physician may be of benefit. D ense breast tissue, in and of itself, is a relatively common condition. Therefore, this information i s not provided to cause undue concern, but rather to raise awareness and to promote discussion with t he referring physician regarding the presence of other risk factors, in addition to dense breast tiss ue. The results of this mammography examination is provided to the patient and referring physician. T he patient should contact their referring physician if any questions or concerns exist regarding this report. PQRS compliance statement - Patient information was entered into a reminder system with a target due date for the next mammogram. "Our facility is accredited by the [employer] Mammography Program." Electronically signed by: Praveena Elam MD (09/08/2020 3:46 PM) [id number]
== END ==
LOC: DXRAD 12:40
PROVIDERS: ATTEND Family Medicine
DX: Z12.31 Encounter for screening mammogram for malignant neoplasm of breast (principal); M81.0 Age-related osteoporosis without current pathological fracture; Z78.0 Asymptomatic menopausal state
CPT/HCPCS: 77067; 77080

== ENCOUNTER 2021-01-13 11:10 | Emergency (ER) | payer MEDICARE, MEDICAID ==
[~2021-01-13] VITALS: Ht 162.6 cm; Wt 99.0 kg
[~2021-01-13 11:10] MED LIST changes: +POTA-112 PO; -POTA10TA5 PO
--- NOTE | 2021-01-13 11:22 | RAD ---
EXAM: Head CT without contrast. HISTORY: Right-sided weakness. Code stroke. TECHNIQUE: Computed tomographic images of the head were obtained without contrast. *One or more of the following individualized dose reduction techniques were utilized for this examina tion: 1. Automated exposure control. 2. Adjustment of the mA and/or kV according to patient size. 3. Use of iterative reconstruction technique. COMPARISON: 06/26/2019. FINDINGS: There is no acute or subacute extra-axial or intraparenchymal hemorrhage. There is no mass effect or midline shift. There is no hydrocephalus. There are areas of decreased attenuation within the cerebral white matter, nonspecific and likely rel ated to chronic small vessel disease. There is evidence of lens surgery. The paranasal sinuses mastoid air cells are unremarkable. There is no calvarial lesion. IMPRESSION: 1. No acute intracranial finding. Note is made that MRI is more sensitive for acute infarction. 2. Bilateral cerebral white matter changes, likely due to chronic small vessel disease in a patient o f this age. Findings discussed with Dr. Ambrocio in the ED at 1115 hours on 01/13/2021. FOR INTERNAL CODING PURPOSES RESULT CODE: (C) Electronically signed by: Bertha Bernal MD (01/13/2021 11:19 AM) [id number]
--- NOTE | 2021-01-13 11:53 | PHYS DOC ---
Past History Past Medical History: Arthritis, Asthma, Bipolar, Cancer, CVA, Depression, DVT, Hypertension, Other Additional Past Medical Histor: FACTOR 5 (LULA CEBALLOS APRN) Past Surgical History: Cholecystectomy, Hysterectomy, Other Additional Past Surgical Histo: GASTRECTOMY, melanoma X 2 (LULA CEBALLOS APRN) Alcohol Use: Rarely Drug Use: None (LULA CEBALLOS APRN) General Adult EDM: Chief Complaint: NEURO SYMPTOMS/DEFICITS HPI: HPI: Patient is a 70-year-old female who presents to the emergency department via EMS. Patient reports that she felt like she was having strokelike symptoms at last night which included a headache. She states that she went to get out of bed this morning at 9:00 and she fell in the bathroom. She is unsure if she had a loss of consciousness. She is reporting pain to the top of her head where she has an abrasion and she is reporting neck pain. Patient rates her pain at 8 out of 10. She is on Plavix due to previous CVA with right-sided symptoms. She states that she does not have a deficit from this previous CVA. Patient is alert and oriented x4. EMS noted right-sided facial droop and report although upon exam patient is noted to have a left-sided facial droop. Upon physical exam, patient is reporting loss of vision to bilateral lower portions of eyes, left-sided facial droop, inability to hold up bilateral lower extremities. She denies any vomiting. (LULA CEBALLOS APRN) Review of Systems: Review of Systems: 14 body systems of the review of systems have been reviewed. See HPI for pertinent positive and negative responses, otherwise all other systems are negative, nonpertinent or noncontributory (LULA CEBALLOS APRN) Allergies: Allergies: Allergies Coded Allergies Type Severity Reaction Last Updated Verified gabapentin Allergy Unknown 05/17/20 Yes magnesium Allergy Unknown 05/17/20 Yes phenobarbital Allergy Unknown 05/17/20 Yes (LULA CEBALLOS APRN) Physical Exam: PE: Constitutional: Well developed, well nourished, no acute distress, non-toxic appearance. [] HENT: Normocephalic, abrasion noted to crown of patient's head with no active bleeding, bilateral external ears normal, oropharynx moist, no oral exudates, nose normal. [] Eyes: PERRLA, 4 mm bilaterally, edema noted to left eyelid, EOMI, conjunctiva normal, no discharge. [] Neck: Normal range of motion, no bony spinal tenderness, supple, no stridor. [] Cardiovascular:Heart rate regular rhythm, no murmur [] Lungs & Thorax: Bilateral breath sounds clear to auscultation [] Abdomen: Bowel sounds normal, soft, no tenderness, obese, no masses, no pulsatile masses. [] Skin: Warm, dry, no erythema, no rash. [] Back: Normal range of motion Extremities: No tenderness, no cyanosis, no clubbing, ROM intact, trace edema BLE. [] Neurologic: Alert and oriented X 3, see NIHSS Psychologic: Affect normal, judgement normal, mood normal. [] (LULA CEBALLOS APRN) Current Patient Data: Vital Signs: Vital Signs Date Time Temp Pulse Resp B/P (MAP) Pulse Ox O2 Delivery O2 Flow Rate FiO2 01/13/21 11:10 98.3 87 16 158/80 (106) 93 Room Air (LULA CEBALLOS BPM ARCHITECT) EKG: EKG: [] (LULA CEBALLOS APRN) Radiology/Procedures: Radiology/Procedures: []PROCEDURE: CT CERVICAL SPINE WO CONTRAST CT C-Spine without contrast: Clinical History: Reason: NECK PAIN / Spl. Instructions: / History: Technique: Axial helical images of the cervical spine were obtained without contrast, axial coronal and sagittal reconstruction was performed. Findings: The vertebral bodies aligned. There has been prior anterior fusion of C4-C7 with anterior plate and screws. There is no loss vertebral stature. As no prevertebral soft tissue swelling. Evaluation central canal is limited without contrast. There is a broad-based disc bulge at C3-C4 there is a broad-based posterior disc bulge with flattening of thecal sac and effacement CSF anterior to the cord. There is mild impression on the anterior surface the cervical cord. There is mild narrowing of the right neuroforamen at C4-C5 and mild narrowing of the right neuroforamen at C5-C6 and moderate narrowing right neuroforamen at C6-C7. Impression: 1. Postsurgical changes. 2. Disc bulge at C3-C4 with compression of the anterior surface the cervical cord. 3. Multilevel neuroforaminal stenosis. 4. No acute findings. Clinical correlation suggested. End impression PQRS Compliance Statement: One or more of the following individualized dose reduction techniques were utilized for this examination: 1. Automated exposure control 2. Adjustment of the mA and/or kV according to patient size 3. Use of iterative reconstruction technique Electronically signed by: Nisha Guthrie III, MD (01/13/2021 2:32 PM) [facility] DICTATED AND SIGNED BY: NISHA GUTHRIE III, MD DATE: 01/13/21 1422 CC: LULA CEBALLOS APRN; HUGH OSBORN MD ~MTH0 0 ASON: RIGHT SIDED WEAKNESS PROCEDURE: CT CODE STROKE HEAD WO EXAM: Head CT without contrast. HISTORY: Right-sided weakness. Code stroke. TECHNIQUE: Computed tomographic images of the head were obtained without contrast. *One or more of the following individualized dose reduction techniques were utilized for this examination: 1. Automated exposure control. 2. Adjustment of the mA and/or kV according to patient size. 3. Use of iterative reconstruction technique. COMPARISON: 06/26/2019. FINDINGS: There is no acute or subacute extra-axial or intraparenchymal hemorrhage. There is no mass effect or midline shift. There is no hydrocephalus. There are areas of decreased attenuation within the cerebral white matter, nonspecific and likely related to chronic small vessel disease. There is evidence of lens surgery. The paranasal sinuses mastoid air cells are unremarkable. There is no calvarial lesion. IMPRESSION: 1. No acute intracranial finding. Note is made that MRI is more sensitive for acute infarction. 2. Bilateral cerebral white matter changes, likely due to chronic small vessel disease in a patient of this age. Findings discussed with Dr. Singh in the ED at 1115 hours on 01/13/2021. FOR INTERNAL CODING PURPOSES RESULT CODE: (C) Electronically signed by: Bertha Decker MD (01/13/2021 11:19 AM) [id number] DICTATED AND SIGNED BY: BERTHA DECKER MD DATE: 01/13/21 1117 CC: CHARLETTE SINGH DO; EMERGENCY,DEPARTMENT; HUGH OSBORN MD ~MTH0 0 BELLA: fall PROCEDURE: PORTABLE CHEST 1V EXAM: Chest, single view. HISTORY: Fall. COMPARISON: 05/17/2020 FINDINGS: A frontal view of the chest is obtained. There is no infiltrate, pleural effusion or pneumothorax. There is a stable prominent cardiac silhouette. There is cervical spinal fusion instrumentation. There are cholecystectomy clips. IMPRESSION: No acute pulmonary finding. Electronically signed by: Bertha Decker MD (01/13/2021 11:53 AM) [id number] DICTATED AND SIGNED BY: BERTHA DECKER MD DATE: 01/13/21 1152 CC: LULA CEBALLOS APRN; HUGH OSBORN MD ~MTH0 0 (LULA CEBALLOS APRN) Heart Score: C/O Chest Pain: N/A Risk Factors: Risk Factors: DM, Current or recent (<one month) smoker, HTN, HLP, family history of CAD, obesity. Risk Scores: Score 0 - 3: 2.5% MACE over next 6 weeks - Discharge Home Score 4 - 6: 20.3% MACE over next 6 weeks - Admit for Clinical Observation Score 7 - 10: 72.7% MACE over next 6 weeks - Early Invasive Strategies (LULA CEBALLOS APRN) Course & Med Decision Making: Course & Med Decision Making Pertinent Labs and Imaging studies reviewed. (See chart for details) Patient presents to the emergency department for left sided facial droop, wea kness and a fall. Patient reports that she was walking to the bathroom this morning and she fell. She states that she felt like she was having a stroke last night at . Work-up in the ER consisted of blood work, EKG, CT scan of head and neck, CTA, chest x-ray. CT scan of head was negative for any acute findings but did show chronic changes. Patient has a history of a CVA with right-sided symptoms but states that she has never had a facial droop deficit. ER staff made several attempts to start an IV for the CTA but were unsuccessful. Patient will need to be admitted and have PICC line placed for CTA. Patient's blood work is unremarkable. I discussed patient's case with Dr. Shelby with neurology. Unable to place patient at [facility] due to bed availability. Therefore, Dr. Goodman agreed to admit the patient at [facility] for neuro symptoms. I attempted to contact the neurologist at [facility] but after several failed attempts to contact him, I did place neuro consult in computer. I discussed findings with patient and she is agreeable to care plan and transfer. (LULA CEBALLOS APRN) Dragon Disclaimer: Dragon Disclaimer: This electronic medical record was generated, in whole or in part, using a voice recognition dictation system. (LULA CEBALLOS APRN) NIH Stroke Scale: NIH Stroke Scale Response (Comments) Value Level of Consciousness: 0 Alert/Responsive 0 LOC Questions: 0 Answers both correctly 0 LOC Commands: 0 Performs both tasks 0 Best Gaze: 0 Normal 0 Visual: 3 Bilateral hemianopia (loss of lower po rtion of vision bilaterally) 3 Facial Palsy: 2 Partial paralysis (left sided) 2 Motor - Left Arm 0 No drift 0 Motor - Right Arm 0 No drift 0 Motor - Left Leg 3 Limb falls 3 Motor: Right Leg 3 Limb falls (Patient reports that she h as spinal stenosis and has decreased mobility of bilateral lower extremities although she states she is normally able to raise both of her legs, she is unable to keep both of her legs raised in the air.) 3 Limb Ataxia: 0 Absent 0 Sensory: 1 Mid to moderate loss (decreased sensat ion on r. side of forehead reported, sensation equal bilaterally to lower face, upper extremities and lower extremities) 1 Best Language: 0 Normal 0 Dysathria: 0 Normal 0 Total 12 Attending Co-Sign The patient was seen and interviewed as well as examined at the bedside. The art was reviewed. The case was discussed. Agree with the plan of care. (CHARLETTE SINGH DO) Departure Departure: Impression: Primary Impression: Neurological symptoms Additional Impression: Facial droop Disposition: 02 [facility]ORT TERM [facility]OSP[facility] Admitting Physician: Ramirez Goodman (LULA CEBALLOS APRN) Condition: STABLE Referrals: HUGH OSBORN MD (PCP) NIHSS - ED NIH Stroke Scale: NIH Stroke Scale Response (Comments) Value Level of Consciousness: 0 Alert/Responsive 0 LOC Questions: 0 Answers both correctly 0 LOC Commands: 0 Performs both tasks 0 Best Gaze: 0 Normal 0 Visual: 3 Bilateral hemianopia 3 Facial Palsy: 2 Partial paralysis 2 Motor - Left Arm 0 No drift 0 Motor - Right Arm 0 No drift 0 Motor - Left Leg 3 Limb falls 3 Motor: Right Leg 3 Limb falls 3 Limb Ataxia: 0 Absent 0 Sensory: 0 No loss 0 Best Language: 0 Normal 0 Dysathria: 0 Normal 0 Extinction and Inattention: 0 Normal (REPEAT NIHSS AT 1425) 0 Total 11 LULA CEBALLSO APRN Jan 13, 2021 11:53 CHARLETTE SINGH DO Jan 14, 2021 07:41
--- NOTE | 2021-01-13 11:55 | RAD ---
EXAM: Chest, single view. HISTORY: Fall. COMPARISON: 05/17/2020 FINDINGS: A frontal view of the chest is obtained. There is no infiltrate, pleural effusion or pneumo thorax. There is a stable prominent cardiac silhouette. There is cervical spinal fusion instrumentati on. There are cholecystectomy clips. IMPRESSION: No acute pulmonary finding. Electronically signed by: Bertha Bernal MD (01/13/2021 11:53 AM) [id number]
[2021-01-13] MEDS ORDERED: IOHEXOL 350 MG/ML 100 ML VIAL. IV ONE (12:00)
[2021-01-13] MEDS ORDERED: CONTRAST GIVEN. MC PRN (12:00)
[2021-01-13 12:27] LABS: BASO % 0 % (0-3); EOS % 0 % (0-3); HEMATOCRIT 43.1 % (36.0-47.0); HEMOGLOBIN 14.4 g/dL (12.0-15.5); LYMPH # 0.6 x10^3/uL (1.0-4.8); LYMPH % 7 % (24-48); MEAN CORPUSCULAR HEMOGLOBIN 29 pg (25-35); MEAN CORPUSCULAR HGB CONC 34 g/dL (31-37); MEAN CORPUSCULAR VOLUME 87 fL (79-100); MONO # 0.2 x10^3/uL (0.0-1.1); MONO % 3 % (0-9); NEUT # 7.1 x10^3uL (1.8-7.7); NEUT % 90 % (31-73); PLATELET COUNT 182 x10^3/uL (140-400); RED BLOOD COUNT 4.96 x10^6/uL (3.50-5.40); RED CELL DISTRIBUTION WIDTH 12.9 % (11.5-14.5); WHITE BLOOD COUNT 7.9 x10^3/uL (4.0-11.0)
[2021-01-13 12:30] LABS: CALCIUM 8.4 mg/dL (8.5-10.1); CREATININE 0.9 mg/dL (0.6-1.0); GFR 61.7; POTASSIUM 3.6 mmol/L (3.5-5.1)
[2021-01-13 12:36] LABS: ALBUMIN 3.4 g/dL (3.4-5.0); TOTAL BILIRUBIN 0.4 mg/dL (0.2-1.0); TOTAL PROTEIN 6.8 g/dL (6.4-8.2)
--- NOTE | 2021-01-13 13:18 | EKG ---
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
[2021-01-13 13:44] LABS: BACTERIA,URINE 0 /HPF (0-FEW); BILIRUBIN,URINE NEG (NEG); CLARITY,URINE CLEAR; COLOR,URINE YELLOW; GLUCOSE,URINE NEG (NEG); NITRITE,URINE NEG (NEG); RBC,URINE 0 /HPF (0-2); SQUAMOUS EPITHELIAL CELL,UR FEW /LPF; UROBILINOGEN,URINE 0.2 mg/dL (0.2 mg/dL); WBC,URINE OCC /HPF (0-4)
--- NOTE | 2021-01-13 14:34 | RAD ---
CT C-Spine without contrast: Clinical History: Reason: NECK PAIN / Spl. Instructions: / History: Technique: Axial helical images of the cervical spine were obtained without contrast, axial coronal and sagittal reconstruction was performed. Findings: The vertebral bodies aligned. There has been prior anterior fusion of C4-C7 with anterior plate and s crews. There is no loss vertebral stature. As no prevertebral soft tissue swelling. Evaluation central canal is limited without contrast. There is a broad-based disc bulge at C3-C4 ther e is a broad-based posterior disc bulge with flattening of thecal sac and effacement CSF anterior to the cord. There is mild impression on the anterior surface the cervical cord. There is mild narrowing of the right neuroforamen at C4-C5 and mild narrowing of the right neuroforam en at C5-C6 and moderate narrowing right neuroforamen at C6-C7. Impression: 1. Postsurgical changes. 2. Disc bulge at C3-C4 with compression of the anterior surface the cervical cord. 3. Multilevel neuroforaminal stenosis. 4. No acute findings. Clinical correlation suggested. End impression PQRS Compliance Statement: One or more of the following individualized dose reduction techniques were utilized for this examinat ion: 1. Automated exposure control 2. Adjustment of the mA and/or kV according to patient size 3. Use of iterative reconstruction technique Electronically signed by: Lance العلي III, MD (01/13/2021 2:32 PM) [facility]
[2021-01-13 19:24] VITALS: BP 173/88
[2021-01-14] MEDS ORDERED: ALBUTEROL SULFATE 2.5 MG/3 ML NEBU. IH PRN (11:00)
[2021-01-14] MEDS ORDERED: FUROSEMIDE 20 MG TABLET PO PRN (11:00)
[2021-01-14] MEDS ORDERED: HYDROcodon/IBUPROFEN 7.5/200MG 1 TAB TABLET PO PRN (11:00)
[2021-01-14] MEDS ORDERED: traMADol 50 MG TABLET PO PRN (11:00)
[2021-01-14] MEDS ORDERED: LAMOTRIGINE 150 MG PO SCH (21:00)
[2021-01-14] MEDS ORDERED: rOPINIRole 0.25 MG TABLET. PO SCH (21:00)
[2021-01-14] MEDS ORDERED: traZODone 50 MG TABLET. PO SCH (21:00)
[2021-01-15] MEDS ORDERED: AZITHROMYCIN 250 MG TABLET. PO SCH (09:00)
[2021-01-15] MEDS ORDERED: ASPIRIN CHEWABLE 81 MG TABLET. PO SCH (09:00)
[2021-01-15] MEDS ORDERED: PANTOPRAZOLE 40 MG TABLET. PO SCH (09:00)
[2021-01-15] MEDS ORDERED: CLOPIDOGREL BISULFATE 75 MG TABLET PO SCH (09:00)
[2021-01-15] MEDS ORDERED: POTASSIUM CHLORIDE 10 MEQ TABLET.ER. PO SCH (09:00)
[2021-01-15] MEDS ORDERED: ARIPiprazole 5 MG TABLET PO SCH (09:00)
== END 2021-01-13 19:30 | disposition short-term general hospital (02) ==
LOC: ER 11:10
DX: S01.91XA Laceration without foreign body of unspecified part of head, initial encounter (principal); R29.810 Facial weakness; R51.9 Headache, unspecified; M19.90 Unspecified osteoarthritis, unspecified site; J45.909 Unspecified asthma, uncomplicated; F31.9 Bipolar disorder, unspecified; I10 Essential (primary) hypertension; Z86.718 Personal history of other venous thrombosis and embolism; Z86.73 Personal history of transient ischemic attack (TIA), and cerebral infarction without residual deficits; Z88.8 Allergy status to other drugs, medicaments and biological substances; W18.39XA Other fall on same level, initial encounter; Y93.89 Activity, other specified; Y92.89 Other specified places as the place of occurrence of the external cause; Y99.8 Other external cause status
CPT/HCPCS: 36415; 70450; 71045; 72125; 80053; 81001; 84484; 85025; 85610; 85730; 93005; 96374; 99285; J3010; 96376

== ENCOUNTER 2021-02-10 14:46 | Emergency (ER) | payer MEDICARE, MEDICAID ==
[~2021-02-10] VITALS: Ht 162.6 cm; Wt 99.0 kg
--- NOTE | 2021-02-10 14:51 | PHYS DOC ---
Past History Past Medical History: Arthritis, Asthma, Bipolar, Cancer, CVA, Depression, DVT, Hypertension, Other Additional Past Medical Histor: FACTOR 5 Past Surgical History: Cholecystectomy, Hysterectomy, Other Additional Past Surgical Histo: GASTRECTOMY, melanoma X 2 Alcohol Use: None Drug Use: None General Adult HPI: HPI: Patient is a 70-year-old female who presents with reported dizziness. She has had episodic dizziness since the end of December. She does report that she feels like she is going to pass out, though she denies any syncope. She reports that symptoms began at the end of December, about a week after she fell and hit her head. She was admitted at [facility] after this episode. She reports that she felt like her dizziness was more severe today. She denies any new head injury or trauma. She denies chest pain, palpitations, dyspnea, abdominal pain, numbness, tingling, motor weakness, speech difficulty. She has some chronic tremors and some generalized weakness, secondary to Parkinson's. No acute changes in this regard today. She reports a headache and nausea. She vomited once today, though she denies any persistent vomiting. She reports that she has been eating and drinking well. She denies any urinary symptoms. Denies fevers or chills. She has not discussed this with her primary care physician, reportedly. Review of Systems: Review of Systems: Constitutional: Denies fever or chills Eyes: Denies change in visual acuity, denies vision loss HENT: Denies nasal congestion or sore throat Respiratory: Denies cough or shortness of breath Cardiovascular: Denies chest pain or edema GI: Denies abdominal pain, nausea, vomiting, or diarrhea : Denies urinary symptoms Musculoskeletal: Denies back pain or joint pain Integument: Denies rash Neurologic: Orts dizziness, describes some vertigo type symptoms, reports headache. Denies focal weakness, numbness or tingling. Chronic but unchanged tremor. Psychiatric: Denies acute mood changes Allergies: Allergies: Allergies Coded Allergies Type Severity Reaction Last Updated Verified gabapentin Allergy Unknown 05/17/20 Yes magnesium Allergy Unknown 05/17/20 Yes phenobarbital Allergy Unknown 05/17/20 Yes Physical Exam: PE: Constitutional: Well developed, well nourished, no acute distress, non-toxic appearance. [] HENT: Normocephalic, atraumatic, oropharynx is patent and clear. Mucous membranes are moist. TMs are clear bilaterally. [] Eyes: PERRL, EOMI, conjunctiva normal, no discharge. No nystagmus. Neck: Normal range of motion, no tenderness, supple, no stridor. Trachea midline. No meningismus. No JVD. Cardiovascular:Heart rate regular rhythm, + 2 radial and posterior tibial pulses bilaterally. Lungs & Thorax: Bilateral breath sounds clear to auscultation [] Abdomen: Bowel sounds normal, soft, no tenderness, no masses, no pulsatile masses. [] Skin: Warm, dry, no erythema, no rash. [] Back: No tenderness, no CVA tenderness. [] Extremities: No tenderness, no cyanosis, no clubbing, ROM intact, no edema. No calf tenderness. Neurologic: She is awake, alert, oriented x3. Cranial nerves II through XII grossly intact. 5 out of 5 motor strength all 4 extremities. No pronator drift, no dysmetria. No limb ataxia. Speech is clear and fluent. Psychologic: Flat affect. She is cooperative. [] EKG: EKG: EKG is interpreted at 1527 Rhythm is sinus Rate is 73 bpm Stanley is left No STEMI Radiology/Procedures: Radiology/Procedures: IMAGING REPORT Signed PATIENT: FROYLAN QUINTANA HACCOUNT: [id number] : 1950 LOCATION: ER AGE: 70 SEX: F EXAM STATUS: REG ER ORD. PHYSICIAN: MARISELA WONG DO REASON: dizziness PROCEDURE: CT HEAD WO CONTRAST Exam: CT head INDICATION: Dizziness TECHNIQUE: Sequential axial images through the head were obtained without the administration of IV contrast. Exposure: One or more of the following in the visualized dose reduction t echniques were utilized for this examination: 1. Automated exposure control 2. Adjustment of the MA and/or KV according to patient size 3. Use of iterative of reconstructive technique Comparisons: 01/13/2021 FINDINGS: No focal parenchymal lesion or hemorrhage is identified. There is no midline shift or sulcal effacement. Mild patchy hypodensity in the periventricular white matter, similar to prior. No acute vascular territory infarction is identified. Andrade-white distinction is preserved. The ventricular system is within normal limits without compression hydrocephalus. The basal cisterns are well maintained. The visualized portions of the paranasal sinuses and mastoid air cells are well- pneumatized. No acute fractures. IMPRESSION: No acute intracranial abnormality. Electronically signed by: Rosalio Singh MD (02/10/2021 4:06 PM) [facility] DICTATED AND SIGNED BY: ROSALIO SINGH MD DATE: 02/10/21 1602 CC: MARISELA WONG DO; HUGH OSBORN MD ~MTH0 0 Heart Score: C/O Chest Pain: No Risk Factors: Risk Factors: DM, Current or recent (<one month) smoker, HTN, HLP, family history of CAD, obesity. Risk Scores: Score 0 - 3: 2.5% MACE over next 6 weeks - Discharge Home Score 4 - 6: 20.3% MACE over next 6 weeks - Admit for Clinical Observation Score 7 - 10: 72.7% MACE over next 6 weeks - Early Invasive Strategies Course & Med Decision Making: Course & Med Decision Making Pertinent Labs and Imaging studies reviewed. (See chart for details) P.o. Tylenol and IV fluids are given. No further nausea or vomiting symptoms reported. The patient has been able to ambulate with some assistance. She has a walker at home that she uses to move around. She has a friend will be able to pick her up and take her home. I discussed all the findings, differential diagnosis and plan of care with her. She has a neurologist at [facility] that she is going to follow-up with in March. I recommend she contact them to see if she can move up her appointment, if she feels like she is progressing or getting worse, otherwise keep this appointment. I strongly recommend she follow-up with her PCP. No current indication for further imaging, invasive exams or admission at this time. Strict return precautions are given. She verbalized understanding. Dragon Disclaimer: Dragganga Disclaimer: This electronic medical record was generated, in whole or in part, using a voice recognition dictation system. Departure Departure: Impression: Primary Impression: Dizziness Additional Impressions: Headache Nausea and vomiting Disposition: HOME / SELF CARE / HOMELESS Condition: STABLE Referrals: HUGH OSBORN MD (PCP) Patient Instructions: Dizziness Additional Instructions: Use the medication as directed/as needed. Stand up slowly. Avoid any unnecessary strenuous activity, such as heavy lifting, climbing. Stay well- hydrated, drink plenty of fluids. Please contact your primary care physician to discuss your symptoms further. Please also follow-up with your neurologist at your scheduled appointment in March. Contact them to see if you may move your appointment up to be seen sooner if your symptoms progress or worsen. Return to the ER for chest pain, shortness of breath, acute injury or trauma, head injury, uncontrolled vomiting, dehydration, focal weakness or any other concerns. Scripts Ondansetron Hcl (ZOFRAN) 4 Mg Tablet 1 TAB PO Q8HRS for vomiting, #20 TAB Prov: MARISELA WONG DO 02/10/21 MARISELA WONG DO Feb 10, 2021 14:51
[2021-02-10] MEDS ORDERED: IV NORMAL SALINE 1,000ML 1,000 ML IV ONE (15:15)
[2021-02-10] MEDS ORDERED: ACETAMINOPHEN 500 MG TABLET PO ONE (15:15)
--- NOTE | 2021-02-10 15:46 | EKG ---
[address] [address] Test Date: 2021-02-10 Test Time: 15:25:23 Pat Name: FROYLAN QUINTANA Department: Room: Gender: F Back Sewer: ROBERTO : 1950 Requested By: MARISELA WONG Order Number: [id number] Reading MD: Measurements Intervals [place] Rate: 73 P: 54 [place]: 178 QRS: -13 QRSD: 88 T: 20 QT: 406 QTc: 451 Interpretive Statements SINUS RHYTHM LEFTWARD AXIS OTHERWISE NORMAL ECG RI6.02 No previous ECG available for comparison
[2021-02-10 15:51] LABS: BASO # 0.1 x10^3/uL (0.0-0.2); BASO % 1 % (0-3); EOS # 0.1 x10^3/uL (0.0-0.7); EOS % 2 % (0-3); HEMOGLOBIN 13.5 g/dL (12.0-15.5); LYMPH # 1.5 x10^3/uL (1.0-4.8); LYMPH % 20 % (24-48); MEAN CORPUSCULAR HEMOGLOBIN 29 pg (25-35); MEAN CORPUSCULAR HGB CONC 33 g/dL (31-37); MEAN CORPUSCULAR VOLUME 88 fL (79-100); MONO # 0.3 x10^3/uL (0.0-1.1); MONO % 3 % (0-9); NEUT # 5.7 x10^3uL (1.8-7.7); NEUT % 74 % (31-73); PLATELET COUNT 192 x10^3/uL (140-400); RED BLOOD COUNT 4.69 x10^6/uL (3.50-5.40); RED CELL DISTRIBUTION WIDTH 13.8 % (11.5-14.5); WHITE BLOOD COUNT 7.6 x10^3/uL (4.0-11.0)
[2021-02-10 15:56] LABS: CALCIUM 8.5 mg/dL (8.5-10.1); CREATININE 0.9 mg/dL (0.6-1.0); GFR 61.7; POTASSIUM 4.6 mmol/L (3.5-5.1)
[2021-02-10 15:59] LABS: MAGNESIUM 2.2 mg/dL (1.8-2.4); PHOSPHORUS 4.2 mg/dL (2.6-4.7)
--- NOTE | 2021-02-10 16:09 | RAD ---
Exam: CT head INDICATION: Dizziness TECHNIQUE: Sequential axial images through the head were obtained without the administration of IV co ntrast. Exposure: One or more of the following in the visualized dose reduction techniques were utilized for this examination: 1. Automated exposure control 2. Adjustment of the MA and/or KV according to patient size 3. Use of iterative of reconstructive technique Comparisons: 01/13/2021 FINDINGS: No focal parenchymal lesion or hemorrhage is identified. There is no midline shift or sulcal effaceme nt. Mild patchy hypodensity in the periventricular white matter, similar to prior. No acute vascular terr itory infarction is identified. Andrade-white distinction is preserved. The ventricular system is within normal limits without compression hydrocephalus. The basal cisterns are well maintained. The visualized portions of the paranasal sinuses and mastoid air cells are well-pneumatized. No acute fractures. IMPRESSION: No acute intracranial abnormality. Electronically signed by: Rosalio Chu MD (02/10/2021 4:06 PM) [facility]
[2021-02-10 17:04] LABS: BILIRUBIN,URINE NEG (NEG); CLARITY,URINE HAZY; COLOR,URINE YELLOW; GLUCOSE,URINE NEG (NEG)
[2021-02-10 17:05] LABS: BACTERIA,URINE 0 /HPF (0-FEW); NITRITE,URINE NEG (NEG); RBC,URINE 0 /HPF (0-2); SQUAMOUS EPITHELIAL CELL,UR OCC /LPF; UROBILINOGEN,URINE 0.2 mg/dL (0.2 mg/dL)
[2021-02-10] MEDS ORDERED: ONDA4TAB7 PO (17:18)
[2021-02-10 17:40] VITALS: BP 124/74
== END 2021-02-10 17:45 | disposition home or self-care (01) ==
LOC: ER 14:46
DX: R42 Dizziness and giddiness (principal); R51.9 Headache, unspecified; R11.2 Nausea with vomiting, unspecified; R53.1 Weakness; M19.90 Unspecified osteoarthritis, unspecified site; J45.909 Unspecified asthma, uncomplicated; F31.9 Bipolar disorder, unspecified; I10 Essential (primary) hypertension; Z86.718 Personal history of other venous thrombosis and embolism; Z86.73 Personal history of transient ischemic attack (TIA), and cerebral infarction without residual deficits; Z88.8 Allergy status to other drugs, medicaments and biological substances
CPT/HCPCS: 36415; 70450; 80048; 81001; 83735; 84100; 84484; 85025; 87086; 93005; 96360; 99285; J7030

== ENCOUNTER 2021-03-29 15:39 | Emergency (ER) | payer MEDICARE, MEDICAID ==
[~2021-03-29] VITALS: Ht 162.6 cm; Wt 99.0 kg
[2021-03-29 15:45] VITALS: BP 125/89
--- NOTE | 2021-03-29 16:26 | PHYS DOC ---
Past History Past Medical History: Arthritis, Asthma, Bipolar, Cancer, CVA, Depression, DVT, Hypertension, Other Additional Past Medical Histor: FACTOR 5; parkinson's; melanoma (LULA CEBALLOS APRN) Past Surgical History: Cholecystectomy, Hysterectomy, Other Additional Past Surgical Histo: GASTRECTOMY, melanoma X 2; back surgery (LULA CEBALLOS APRN) Alcohol Use: None Drug Use: None (LULA CEBALLOS APRN) General Adult EDM: Chief Complaint: SUICIDAL IDEATION HPI: HPI: Patient is a 70-year-old female who presents to the emergency department for suicidal ideation. Patient reports that she was diagnosed with bipolar depression and she takes Lamictal, trazodone and Abilify. She reports that over the last 2 to 3 months she has been in a "slump". Patient reports that she stopped taking her medications 2 months ago. She denies any plan. She reports that she has attempted to kill her self in the past by overdosing on prescription pills. She does not follow-up with anyone outpatient but she did go to [facility] today and they sent her to the emergency department. Patient has no current complaints and she denies any homicidal ideation. (LULA CEBALLOS APRN) Review of Systems: Review of Systems: 14 body systems of the review of systems have been reviewed. See HPI for pertinent positive and negative responses, otherwise all other systems are negative, nonpertinent or noncontributory (LULA CEBALLOS APRN) Allergies: Allergies: Allergies Coded Allergies Type Severity Reaction Last Updated Verified gabapentin Allergy Unknown 02/10/21 Yes magnesium Allergy Unknown 02/10/21 Yes phenobarbital Allergy Unknown 02/10/21 Yes (LULA CEBALLOS APRN) Physical Exam: PE: Constitutional: Well developed, well nourished, no acute distress, non-toxic appearance. [] HENT: Normocephalic, atraumatic, bilateral external ears normal, oropharynx moist, no oral exudates, nose normal. [] Eyes: PERRL, EOMI, conjunctiva normal, no discharge. [] Neck: Normal range of motion, no stridor Cardiovascular: Normal peripheral perfusion Lungs & Thorax: Normal work of breathing, no tachypnea Abdomen: Bowel sounds normal, soft, no tenderness, no masses, no pulsatile masses. [] Skin: Warm, dry, no erythema, no rash. [] Back: Normal range of motion Extremities: No tenderness, no cyanosis, no clubbing, ROM intact, no edema. [] Neurologic: Alert and oriented X 3, normal motor function, normal sensory function, no focal deficits noted. [] Psychologic: Affect normal, judgement normal, mood normal. [] (LULA CEBALLOS APRN) Current Patient Data: Labs: Laboratory Tests Test 03/29/21 16:25 White Blood Count 7.4 x10^3/uL Red Blood Count 4.47 x10^6/uL Hemoglobin 13.1 g/dL Hematocrit 38.9 % Mean Corpuscular Volume 87 fL Mean Corpuscular Hemoglobin 29 pg Mean Corpuscular Hemoglobin Concent 34 g/dL Red Cell Distribution Width 13.8 % Platelet Count 215 x10^3/uL Neutrophils (%) (Auto) 72 % Lymphocytes (%) (Auto) 22 % Monocytes (%) (Auto) 5 % Eosinophils (%) (Auto) 1 % Basophils (%) (Auto) 0 % Neutrophils # (Auto) 5.3 x10^3uL Lymphocytes # (Auto) 1.6 x10^3/uL Monocytes # (Auto) 0.4 x10^3/uL Eosinophils # (Auto) 0.1 x10^3/uL Basophils # (Auto) 0.0 x10^3/uL Sodium Level 137 mmol/L Potassium Level 3.8 mmol/L Chloride Level 103 mmol/L Carbon Dioxide Level 27 mmol/L Anion Gap 7 Blood Urea Nitrogen 18 mg/dL Creatinine 1.1 mg/dL Estimated GFR (Cockcroft-Gault) 49.0 BUN/Creatinine Ratio 16 Glucose Level 131 mg/dL Calcium Level 8.2 mg/dL Total Bilirubin 0.3 mg/dL Aspartate Amino Transf (AST/SGOT) 11 U/L Alanine Aminotransferase (ALT/SGPT) 13 U/L Alkaline Phosphatase 75 U/L Total Protein 6.3 g/dL Albumin 3.3 g/dL Albumin/Globulin Ratio 1.1 Salicylates Level 1.6 mg/dL Salicylate Last Dose Date Unk Salicylate Last Dose Time Unk Acetaminophen Level < 2 mcg/mL Acetaminophen Last Dose Date Unk Acetaminophen Last Dose Time Unk Ethyl Alcohol Level < 10 mg/dL Vital Signs: Vital Signs Date Time Temp Pulse Resp B/P (MAP) Pulse Ox O2 Delivery O2 Flow Rate FiO2 03/29/21 15:45 97.6 74 18 125/89 (101) 98 Room Air (LULA CEBALLOS APRN) EKG: EKG: [] (LULA CEBALLOS APRN) Radiology/Procedures: Radiology/Procedures: [] (LULA CEBALLOS APRN) Heart Score: C/O Chest Pain: N/A Risk Factors: Risk Factors: DM, Current or recent (<one month) smoker, HTN, HLP, family hist ory of CAD, obesity. Risk Scores: Score 0 - 3: 2.5% MACE over next 6 weeks - Discharge Home Score 4 - 6: 20.3% MACE over next 6 weeks - Admit for Clinical Observation Score 7 - 10: 72.7% MACE over next 6 weeks - Early Invasive Strategies (LULA CEBALLOS APRN) Course & Med Decision Making: Course & Med Decision Making Pertinent Labs and Imaging studies reviewed. (See chart for details) Patient presents to the emergency department for suicidal ideation. Patient has been off of her bipolar depression medications for 2 months. Work-up in the ER consisted of blood work and urinalysis. Patient will be evaluated by the psychiatric assessment team. Patient's lab work is unremarkable and she is medically cleared at this time 1909. Patient is to be evaluated by Jesus with PAT team. I discussed patients case with supervising physician and he will assume patient care at this time due to shift change 1911. (LULA CEBALLOS APRN) Course & Med Decision Making See PAT evaluation for details. See [place] chart for details. Impression: 1. Depression 2. Suicidal ideation 3. Anxiety Follow [facility] and team recommendations. Follow-up primary care. Retur n if any concerns. (CHUCK STEPHEN MD) Dragon Disclaimer: Dragon Disclaimer: This electronic medical record was generated, in whole or in part, using a voice recognition dictation system. (LULA CEBALLOS APRN) Departure Departure: Impression: Primary Impression: Suicidal ideation Condition: GOOD Referrals: IGNACIA OSBORN (PCP) Attending Signature Attending Signature I have participated in the care of this patient and I have reviewed and agree with all pertinent clinical information above including history, exam, and recommendations. (CHUCK STEPHEN MD) Attending Signature Attending Signature I have participated in the care of this patient and I have reviewed and agree with all pertinent clinical information above including history, exam, and recommendations. (CHUCK STEPHEN MD) Attending Signature Attending Signature I have participated in the care of this patient and I have reviewed and agree with all pertinent clinical information above including history, exam, and recommendations. (CHUCK STEPHEN MD) Dragon Disclaimer This chart was dictated in whole or in part using Voice Recognition software in a busy, high-work load, and often noisy Emergency Department environment. It may contain unintended and wholly unrecognized errors or omissions. (CHUCK STEPHEN MD) LULA CEBALLOS APRN Mar 29, 2021 16:26 CHUCK STEPHEN MD Mar 29, 2021 19:31
[2021-03-29 17:07] LABS: BASO % 0 % (0-3); EOS # 0.1 x10^3/uL (0.0-0.7); EOS % 1 % (0-3); HEMATOCRIT 38.9 % (36.0-47.0); HEMOGLOBIN 13.1 g/dL (12.0-15.5); LYMPH # 1.6 x10^3/uL (1.0-4.8); LYMPH % 22 % (24-48); MEAN CORPUSCULAR HEMOGLOBIN 29 pg (25-35); MEAN CORPUSCULAR HGB CONC 34 g/dL (31-37); MEAN CORPUSCULAR VOLUME 87 fL (79-100); MONO # 0.4 x10^3/uL (0.0-1.1); MONO % 5 % (0-9); NEUT # 5.3 x10^3uL (1.8-7.7); NEUT % 72 % (31-73); PLATELET COUNT 215 x10^3/uL (140-400); RED BLOOD COUNT 4.47 x10^6/uL (3.50-5.40); RED CELL DISTRIBUTION WIDTH 13.8 % (11.5-14.5); WHITE BLOOD COUNT 7.4 x10^3/uL (4.0-11.0)
[2021-03-29 17:19] LABS: CALCIUM 8.2 mg/dL (8.5-10.1); CREATININE 1.1 mg/dL (0.6-1.0); POTASSIUM 3.8 mmol/L (3.5-5.1)
[2021-03-29 17:26] LABS: ACETAMIN < 2 mcg/mL (10-30); ALBUMIN 3.3 g/dL (3.4-5.0); ALBUMIN/GLOBULIN RATIO 1.1 (1.0-1.7); ETHANOL < 10 mg/dL (0-10); SALIC 1.6 mg/dL (2.8-20.0); TOTAL BILIRUBIN 0.3 mg/dL (0.2-1.0); TOTAL PROTEIN 6.3 g/dL (6.4-8.2)
[2021-03-29 21:06] LABS: BARBITURATES NEG (NEG); BENZODIAZEPINES NEG (NEG); CANNABINOIDS NEG (NEG); COCAINE NEG (NEG); METHADONE NEG (NEG); OPIATES NEG (NEG); PHENCYCLIDINE NEG (NEG)
[2021-03-29 21:10] LABS: AMPHETAMINE/METHAMPHETAMINE NEG (NEG)
[2021-03-29 21:29] LABS: BILIRUBIN,URINE NEG (NEG); CLARITY,URINE CLEAR; COLOR,URINE YELLOW; GLUCOSE,URINE NEG (NEG)
[2021-03-29 21:30] LABS: BACTERIA,URINE FEW /HPF (0-FEW); NITRITE,URINE NEG (NEG); RBC,URINE OCC /HPF (0-2); SQUAMOUS EPITHELIAL CELL,UR FEW /LPF; UROBILINOGEN,URINE 0.2 mg/dL (0.2 mg/dL); WBC,URINE >40 /HPF (0-4)
[2021-03-30] MEDS ORDERED: CEPH500C PO (23:24)
== END 2021-03-29 20:35 | disposition home or self-care (01) ==
LOC: ER 15:39
DX: R45.851 Suicidal ideations (principal); F41.9 Anxiety disorder, unspecified; M19.90 Unspecified osteoarthritis, unspecified site; J45.909 Unspecified asthma, uncomplicated; F31.9 Bipolar disorder, unspecified; I10 Essential (primary) hypertension; Z20.822 Contact with and (suspected) exposure to COVID-19; Z86.73 Personal history of transient ischemic attack (TIA), and cerebral infarction without residual deficits; Z86.718 Personal history of other venous thrombosis and embolism; Z88.8 Allergy status to other drugs, medicaments and biological substances
CPT/HCPCS: 36415; 80053; 80307; 80329; 81001; 85025; 87086; 87426; 99285; C9803; G0480; U0003

== ENCOUNTER 2021-03-30 15:48 | Emergency (ER) | payer MEDICARE, MEDICAID ==
[~2021-03-30] VITALS: Ht 162.6 cm; Wt 99.0 kg
--- NOTE | 2021-03-30 20:21 | PHYS DOC ---
Past History Past Medical History: Arthritis, Asthma, Bipolar, Cancer, CVA, Depression, DVT, Hypertension, Other Additional Past Medical Histor: FACTOR 5; parkinson's; melanoma (LULA CEBALLOS APRN) Past Surgical History: Cholecystectomy, Hysterectomy, Other Additional Past Surgical Histo: GASTRECTOMY, melanoma X 2; back surgery (LULA CEBALLOS APRN) Alcohol Use: None Drug Use: None (LULA CEBALLOS APRN) General Adult EDM: Chief Complaint: SUICIDAL IDEATION HPI: HPI: Patient is a 70-year-old female who presents to the emergency department for suicidal ideation. Patient was seen in this emergency department yesterday and I saw her for same complaint. She was medically cleared and evaluated by member of the psychiatric assessment team and with safety plan at home. Patient reports that her thoughts of suicide are worse today. She reports a plan to overdose on her prescription pills. Patient takes Lamictal, Abilify and trazodone for bipolar depression. Patient reports that she has not attempted. She states that she has attempted in the past by overdosing on her medications. She denies any homicidal ideation. Patient [facility] her [facility] the emergency department. Patient denies any chest pain, shortness of breath, cough, fever, nausea, vomiting. (LULA CEBALLOS APRN) Review of Systems: Review of Systems: Constitutional: negative unless reported in HPI Eyes: negative unless reported in HPI HENT: negative unless reported in HPI Respiratory: negative unless reported in HPI Cardiovascular: negative unless reported in HPI GI: negative unless reported in HPI : negative unless reported in HPI Musculoskeletal: negative unless reported in HPI Integument: negative unless reported in HPI Neurologic: negative unless reported in HPI Endocrine: negative unless reported in HPI Lymphatic: negative unless reported in HPI Psychiatric: negative unless reported in HPI (LULA CEBALLOS APRN) Allergies: Allergies: Allergies Coded Allergies Type Severity Reaction Last Updated Verified gabapentin Allergy Unknown 02/10/21 Yes magnesium Allergy Unknown 02/10/21 Yes phenobarbital Allergy Unknown 02/10/21 Yes (LULA CEBALLOS APRN) Physical Exam: PE: Constitutional: Well developed, well nourished, no acute distress, non-toxic appearance. [] HENT: Normocephalic, atraumatic, bilateral external ears normal, oropharynx moist, no oral exudates, nose normal. [] Eyes: PERRL, EOMI, conjunctiva normal, no discharge. [] Neck: Normal range of motion, no stridor Cardiovascular: Normal peripheral perfusion Lungs & Thorax: Normal work of breathing, no tachypnea Abdomen: Soft and flat Skin: Warm, dry, no erythema, no rash. [] Back: Normal range of motion Extremities: No tenderness, no cyanosis, no clubbing, ROM intact, no edema. Neurologic: Alert and oriented X 3, normal motor function, normal sensory function, no focal deficits noted. [] Psychologic: Affect normal, judgement normal, mood normal. [] (LULA CEBALLOS APRN) Current Patient Data: Labs: Laboratory Tests Test 03/30/21 19:56 Urine Collection Type Unknown Urine Color Yellow Urine Clarity Clear Urine pH 5.5 Urine Specific Ulysses >=1.030 Urine Protein Neg Urine Glucose (UA) Neg mg/dL Urine Ketones (Stick) 40 mg/dL Urine Blood Neg Urine Nitrite Neg Urine Bilirubin Small Urine Urobilinogen Dipstick 0.2 mg/dL Urine Leukocyte Esterase Trace Urine RBC 0 /HPF Urine WBC 11-20 /HPF Urine Squamous Epithelial Cells Occ /LPF Urine Bacteria Few /HPF Urine Opiates Screen Neg Urine Methadone Screen Neg Urine Barbiturates Neg Urine Phencyclidine Screen Neg Urine Amphetamine/Methamphetamine Neg Urine Benzodiazepines Screen Neg Urine Cocaine Screen Neg Urine Cannabinoids Screen Neg Urine Ethyl Alcohol Neg SARS-CoV-2 Antigen (Rapid) Negative Vital Signs: Vital Signs Date Time Temp Pulse Resp B/P (MAP) Pulse Ox O2 Delivery O2 Flow Rate FiO2 03/30/21 19:47 98.0 73 16 153/84 (107) 98 Room Air (LULA CEBALLOS APRN) EKG: EKG: [EKG performed by ER staff at 195 shows sinus rhythm with a rate of 60, no STEMI read by Dr. Granger (LULA CEBALLOS APRN) Radiology/Procedures: Radiology/Procedures: [] (LULA CEBALLOS APRN) Heart Score: C/O Chest Pain: N/A Risk Factors: Risk Factors: DM, Current or recent (<one month) smoker, HTN, HLP, family history of CAD, obesity. Risk Scores: Score 0 - 3: 2.5% MACE over next 6 weeks - Discharge Home Score 4 - 6: 20.3% MACE over next 6 weeks - Admit for Clinical Observation Score 7 - 10: 72.7% MACE over next 6 weeks - Early Invasive Strategies (LULA CEBALLOS APRN) Course & Med Decision Making: Course & Med Decision Making Pertinent Labs and Imaging studies reviewed. (See chart for details) [] Patient presents to the emergency department today for suicidal ideation with a plan. Blood work and urinalysis performed for medical clearance and patient will be evaluated by member of the psychiatric assessment team. Urinalysis shows a urinary tract infection and patient will be treated with an antibiotic. Blood work is pending at this time. Patient was evaluated by member of the psychiatric assessment team and they are attempting to place the patient at [facility] but they are not excepting patients unless they have a COVID PCR test and they are not excepting new patients until tomorrow morning. I discussed patient's case with supervising physician who will assume care at this time due to shift change.0003 (LULA CEBALLOS APRN) Course & Med Decision Making See [place] chart for details prior shift change. Pt. Requesting sleeping meds at 0300 hrs. Doxepin 25 and Ativan 1 mg given. (CHUCK GRANGER MD) Dragon Disclaimer: Dragon Disclaimer: This electronic medical record was generated, in whole or in part, using a voice recognition dictation system. (LULA CEBALLOS APRN) Departure Departure: Impression: Primary Impression: Suicidal ideation Additional Impression: Urinary tract infection Qualified Codes: N30.00 - Acute cystitis without hematuria Disposition: [facility] Condition: STABLE Referrals: IGNACIA OSBORN (PCP) Patient Instructions: Urinary Tract Infection Additional Instructions: You were seen in the emergency department today for suicidal ideation. You were noted to have a urinary tract infection this will be treated with an antibiotic. Please start and finish the antibiotic completely. Increase your fluids and avoid bladder irritants like caffeine, sugary beverages or alcohol. Scripts Cephalexin (KEFLEX) 500 Mg Capsule 1 CAP PO BID for uti for 7 Days, #14 CAP 0 Refills Prov: LULA CEBALLOS APRN 03/30/21 Attending Signature Attending Signature I have participated in the care of this patient and I have reviewed and agree with all pertinent clinical information above including history, exam, and recommendations. (CHUCK GRANGER MD) Dragon Disclaimer This chart was dictated in whole or in part using Voice Recognition software in a busy, high-work load, and often noisy Emergency Department environment. It may contain unintended and wholly unrecognized errors or omissions. (CHUCK GRANGER MD) LULA CEBALLOS APRN Mar 30, 2021 20:21 CHUCK GRANGER MD Mar 31, 2021 02:50
[2021-03-30 20:38] LABS: BARBITURATES NEG (NEG); BENZODIAZEPINES NEG (NEG); CANNABINOIDS NEG (NEG); COCAINE NEG (NEG); METHADONE NEG (NEG); OPIATES NEG (NEG); PHENCYCLIDINE NEG (NEG)
[2021-03-30 20:44] LABS: BILIRUBIN,URINE SMALL (NEG); CLARITY,URINE CLEAR; COLOR,URINE YELLOW; GLUCOSE,URINE NEG (NEG); NITRITE,URINE NEG (NEG); RBC,URINE 0 /HPF (0-2); UROBILINOGEN,URINE 0.2 mg/dL (0.2 mg/dL)
[2021-03-30 20:45] LABS: AMPHETAMINE/METHAMPHETAMINE NEG (NEG); BACTERIA,URINE FEW /HPF (0-FEW); SQUAMOUS EPITHELIAL CELL,UR OCC /LPF
[2021-03-30] MEDS ORDERED: CEPH500C PO (23:24)
[2021-03-30] MEDS ORDERED: CEPHALEXIN 250 MG CAPSULE PO ONE (23:30)
--- NOTE | 2021-03-31 01:39 | EKG ---
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
[2021-03-31 02:31] LABS: BASO % 1 % (0-3); EOS # 0.1 x10^3/uL (0.0-0.7); EOS % 2 % (0-3); HEMATOCRIT 39.2 % (36.0-47.0); HEMOGLOBIN 12.9 g/dL (12.0-15.5); LYMPH # 2.1 x10^3/uL (1.0-4.8); LYMPH % 34 % (24-48); MEAN CORPUSCULAR HEMOGLOBIN 29 pg (25-35); MEAN CORPUSCULAR HGB CONC 33 g/dL (31-37); MEAN CORPUSCULAR VOLUME 87 fL (79-100); MONO # 0.4 x10^3/uL (0.0-1.1); MONO % 6 % (0-9); NEUT # 3.6 x10^3uL (1.8-7.7); NEUT % 58 % (31-73); PLATELET COUNT 202 x10^3/uL (140-400); RED CELL DISTRIBUTION WIDTH 13.7 % (11.5-14.5); WHITE BLOOD COUNT 6.3 x10^3/uL (4.0-11.0)
[2021-03-31 02:41] LABS: CALCIUM 8.1 mg/dL (8.5-10.1); CREATININE 0.8 mg/dL (0.6-1.0); GFR 70.7; POTASSIUM 3.8 mmol/L (3.5-5.1)
[2021-03-31 02:46] LABS: ALBUMIN 3.2 g/dL (3.4-5.0); ALBUMIN/GLOBULIN RATIO 1.3 (1.0-1.7); TOTAL BILIRUBIN 0.4 mg/dL (0.2-1.0); TOTAL PROTEIN 5.6 g/dL (6.4-8.2)
[2021-03-31] MEDS ORDERED: LORazepam 1 MG TABLET PO ONE (03:00)
[2021-03-31] MEDS ORDERED: DOXEPIN HCL 25 MG CAPSULE PO SCH (03:00)
[2021-03-31 11:56] VITALS: BP 129/77
== END 2021-03-31 12:36 ==
LOC: ER 15:48
DX: R45.851 Suicidal ideations (principal); N30.00 Acute cystitis without hematuria; M19.90 Unspecified osteoarthritis, unspecified site; J45.909 Unspecified asthma, uncomplicated; F31.9 Bipolar disorder, unspecified; I10 Essential (primary) hypertension; Z20.822 Contact with and (suspected) exposure to COVID-19; Z86.718 Personal history of other venous thrombosis and embolism; Z88.8 Allergy status to other drugs, medicaments and biological substances
CPT/HCPCS: 80053; 80307; 81001; 85025; 87086; 87426; 93005; 99285; U0003